=== PATIENT | female | born 1945 | race Caucasian/White ===

== ENCOUNTER → 2016-04-04 | Outpatient (CLI) | payer OTHER, MEDICARE ==
[~2016-04-04] MED LIST: BUTACAP7 PO; CHOL100010 PO; LEVO100T7 PO; METO1TAB66 PO; SERT1TAB92 PO; SIMV20TA5 PO
[2016-04-04 09:48] LABS: ESTIMATED AVERAGE GLUCOSE 108 mg/dl; HA1C FLAG Normal (Normal)
[2016-04-04 09:58] LABS: ALT/SGPT 51 U/L (12-78); AST/SGOT 39 U/L (15-37); BLOOD UREA NITROGEN 11 mg/dl (7-18); BUN/CREATININE RATIO 12.7 (10-20); CALCIUM 9.1 mg/dl (8.5-10.1); CARBON DIOXIDE 27 mmol/L (21-32); CHLORIDE 109 mmol/L (98-107); CREATININE 0.85 mg/dl (0.60-1.20); GLUCOSE 100 mg/dl (70-99); POTASSIUM 3.9 mmol/L (3.5-5.1); SODIUM 145 mmol/L (136-145)
--- NOTE | 2016-04-06 12:23 | CODING QUERY NO DIAGNOSIS ---
: 1945 TREATMENT RENDERED WITHOUT A DIAGNOSIS To promote full compliance with coding requirements relating to patient care, physician participation is requested in all cases of subsurface augmentee operator uncertainty. Please assist us with providing a diagnosis/symptom for the test(s) below: A diagnosis/symptom was not documented on your Order. A valid diagnosis/symptom is required to bill all insurances. Please remember that we are unable to code a diagnosis of rule out, probable, possible, questionable, or suspected. Tests that require a diagnosis: DOS: 04/04/16 * ALT/SGPT DIAGNOSIS: * AST/SGOT DIAGNOSIS: * Creatinine Phosphokinase DIAGNOSIS: * Partial Renal Profile DIAGNOSIS: * Hemoglobin A1C DIAGNOSIS: Provider Signature: Date: Thank you Jenna Kamara [facility] Information Management Once completed, please kindly fax back to [phone] For questions please call [phone]
== END | disposition home or self-care (01) ==
LOC: C.LAB 09:05
DX: E78.5 Hyperlipidemia, unspecified (principal); I10 Essential (primary) hypertension; R73.02 Impaired glucose tolerance (oral)

== ENCOUNTER → 2016-09-25 | Outpatient (CLI) | payer OTHER, MEDICARE ==
[2016-09-25 10:09] LABS: ALT/SGPT 50 U/L (12-78); AST/SGOT 42 U/L (15-37); BLOOD UREA NITROGEN 13 mg/dl (7-18); CALCIUM 9.2 mg/dl (8.5-10.1); CARBON DIOXIDE 29 mmol/L (21-32); CHLORIDE 110 mmol/L (98-107); CREATININE 0.75 mg/dl (0.60-1.20); GLUCOSE 95 mg/dl (70-99); POTASSIUM 3.8 mmol/L (3.5-5.1); SODIUM 143 mmol/L (136-145)
[2016-09-25 10:12] LABS: CHOLESTEROL 160 mg/dl (0-200); CHOLESTEROL/HDL RATIO 3.9; HDL CHOLESTEROL 41 mg/dl; LDL CHOLESTEROL CALCULATED 81 mg/dl; TRIGLYCERIDES 192 mg/dl (0-150); VERY LOW DENSITY LIPOPROT CALC 38 mg/dl
== END | disposition home or self-care (01) ==
LOC: C.LAB 08:19
DX: M81.0 Age-related osteoporosis without current pathological fracture (principal); I10 Essential (primary) hypertension; E78.5 Hyperlipidemia, unspecified

== ENCOUNTER → 2016-11-06 | Outpatient (CLI) | payer OTHER, MEDICARE | END | disposition home or self-care (01) | LOC: C.MAMM 13:26 | DX: M85.88 Other specified disorders of bone density and structure, other site (principal); M85.852 Other specified disorders of bone density and structure, left thigh; M85.851 Other specified disorders of bone density and structure, right thigh ==

== ENCOUNTER → 2016-11-13 | Outpatient (CLI) | payer OTHER, MEDICARE ==
[2016-11-13 11:55] LABS: FERRITIN 191.2 ng/ml (8.0-388.0); THYROID STIMULATING HORMONE 0.026 uIu/ml (0.300-4.500)
== END | disposition home or self-care (01) ==
LOC: C.LAB 09:31
DX: G47.00 Insomnia, unspecified (principal)

== ENCOUNTER → 2017-02-22 | Outpatient (CLI) | payer OTHER, MEDICARE ==
[~2017-02-22] MED LIST changes: +METO-452 PO; -METO1TAB66 PO
[2017-02-22 11:24] LABS: BASO % 0.8 %; BASO ABS # 0.06 K/uL (0-0.2); EOS % 2.3 %; EOS ABS # 0.17 K/uL (0-0.5); HEMATOCRIT 41.8 % (37-47); HEMOGLOBIN 14.8 g/dL (12.0-16.0); IG# 0.04 K/uL (0.00-0.02); LYMPH % 45.7 %; LYMPH ABS # 3.45 K/uL (1.2-3.4); MEAN CELL VOLUME 85.3 fL (80-100); MEAN CORPUSCULAR HEMOGLOBIN 30.2 pg (25-34); MEAN CORPUSCULAR HGB CONC 35.4 g/dl (32-36); MONO % 7.8 %; MONO ABS # 0.59 K/uL (0.11-0.59); NEUT % 42.9 %; NEUT ABS # 3.24 K/uL (1.4-6.5); PLATELET COUNT 216 K/uL (130-400); RED CELL DISTRIBUTION WIDTH CV 13.4 % (11.5-14.5); RED CELL DISTRIBUTION WIDTH SD 41.1 fL (36.4-46.3); WHITE BLOOD COUNT 7.55 K/uL (4.8-10.8)
[2017-02-22 13:13] LABS: ALBUMIN 3.9 gm/dl (3.4-5.0); ALT/SGPT 42 U/L (12-78); AST/SGOT 29 U/L (15-37); BLOOD UREA NITROGEN 15 mg/dl (7-18); CALCIUM 9.2 mg/dl (8.5-10.1); CARBON DIOXIDE 27 mmol/L (21-32); CREATININE 0.87 mg/dl (0.60-1.20); GLUCOSE 92 mg/dl (70-99); POTASSIUM 4.1 mmol/L (3.5-5.1); SODIUM 138 mmol/L (136-145)
[2017-02-22 13:23] LABS: ALKALINE PHOSPHATASE 132 U/L (45-117); TOTAL PROTEIN 8.2 gm/dl (6.4-8.2)
== END | disposition home or self-care (01) ==
LOC: C.LAB 09:46
DX: R50.9 Fever, unspecified (principal); R10.9 Unspecified abdominal pain

== ENCOUNTER 2019-07-05 09:07 | Observation (INO) ==
[2019-07-05] MEDS ORDERED: ONDANSETRON INJ 2 MG/ML 2 ML VIAL IV STA (09:31)
[2019-07-05] MEDS ORDERED: ACETAMINOPHEN 325 MG TAB PO STA (09:31)
[2019-07-05] MEDS ORDERED: SODIUM CHLORIDE 0.9% 1000ML 1,000 ML IV SCH (09:45)
--- NOTE | 2019-07-05 09:51 | Emergency Department Note ---
Impression & Plan Chest pain, Dehydration, Fever ED Provider Note NAME: TANG HER AGE: 73 SEX: F : 1945 ARRIVES VIA: Ambulance INFORMANT: Patient, ED PROVIDER(S): Kishan Sutton MD Chief Complaint: Chest pain HPI: Patient states she began to have chest pain last evening. She describes it as central with radiation to her back and left shoulder. Patient describes the pain as occasionally pleuritic although that is improved. Patient states it is worse with lying down. The patient states that her pain has improved [facility] and given 4 baby aspirin. No associated nausea or vomiting. Not currently pleuritic and not currently having chest pain the patient denies any prior lung or cardiac history. Patient is a non-smoker. No history of DVT or PE. Patient does admit to chronic left lower extremity swelling which has been ongoing for many years. No recent surgeries. No recent hospitalizations. Patient does not present with cough, fevers, chills, coronavirus contacts, coronavirus testing, or recent travel. Patient denies infectious symptoms including dysuria, rash, cough, sore throat. ROS: See HPI for pertinent positives and negatives. A total of 10 systems were reviewed and otherwise negative. Past medical history: See below Surgical history: See below Social history: See below Physical Exam: GENERAL: Mildly uncomfortable in appearance. Wearing a mask. EYE EXAM: Normal conjunctiva. PERRL, no anisocoria and EOM's grossly intact w/o pain. NECK: Supple, no nuchal rigidity, no adenopathy, non-tender. No signs of meningismus. LUNGS: Clear to auscultation. Normal chest wall mechanics. HEART: Tachycardic and regular, no MRG. ABDOMEN: Abdomen soft, non-tender, normo-active bowel sounds, no masses, no rebound or guarding. BACK: No CVA TTP. SKIN: No rashes and no bruising. UPPER EXTREMITIES: Upper extremities are grossly normal. LOWER EXTREMITIES: Grossly normal, trace left lower extremity edema with negative Homans sign bilaterally. NEURO EXAM: A&O x3, cranial nerves II-XII grossly intact, normal speech, moves all 4 extremities on command w/o issue. Differential diagnoses: Cardiac ischemia, aortic dissection, pulmonary embolism, pneumothorax, pneumonia, pericarditis, myocarditis, esophageal rupture, GERD, cholecystitis, pancreatitis, musculoskeletal, as well as other pathologies. Course: Patient was seen and evaluated the bedside. Full history physical exam was performed. EKG: Indication: Chest pain Sinus tachycardia, rate of 121, normal intervals, normal axis, Q waves in V2, patient does appear to have diffuse ST elevations that appear convex with associated SD depression which are apparent in V3 through V6 lead I, lead II, in lead aVF. May be more consistent with a pericarditis especially given the patient's borderline fever. Comparison EKG from February 01, 2015. Patient's rate today is higher, patient does not appear to have the ST elevations or SD depressions. Imaging Studies: Radiology results as stated below per my review in the radiologist's interpretation: XR chest 1V portable CLINICAL HISTORY: 73 years-old Female presenting with Chest Pain. TECHNIQUE: Portable upright AP view of the chest was obtained. COMPARISON: 02/01/2015. FINDINGS: Cardiomediastinal silhouette normal. Minimal left basilar opacities. No pleural effusion or pneumothorax. Degenerative changes of the thoracic spine. Upper abdomen normal. IMPRESSION: 1. Minimal left basilar opacities likely atelectasis or scarring. No convincing evidence of acute cardiopulmonary disease. ACT 112: Negative or not required by law. Electronically signed by: Florentin Peng M.D. 07/05/2019 9:50 AM Dictated: 07/05/19948 Transcribed: 07/05/1947 Cardiac monitoring: An order was placed for continuous cardiac monitoring. The monitor shows a rate of 121 with sinus tachycardia rhythm. MDM: Patient does present with concern for chest pain. The patient did receive aspirin prior to being sent over by [facility]. Initial EKG may show signs of pericarditis especially given the patient's borderline fever. Chest x-ray along with blood work was ordered at this time. The patient sitting upright currently does not express discomfort. The patient did state that she did have some pleuritic pain but does not experience that at the bedside currently. The patient states that she does have improvement in pain with sitting upright and is currently asymptomatic. Patient has a mild white count of 12 with a normal hemoglobin. Kidney function is not remarkable. Troponin negative. Given the concern for the patient's borderline fever as well as improvement with aspirin even in the setting of possible pericarditis patient does have some risk factors and possible concern for cardiac related chest pain. I did speak with the on-call hospitalist Dr. Darshan Walsh, DO [facility] physician group hospitalist service who agreed to further evaluate treat the patient. Patient was admitted to the medicine service. Of note the patient's heart rate was improving with IV fluids and antipyretics. I did consider the possibility of PE but the patient only had chronic left lower extremity edema with no change no calf pain the patient has been fairly active. I believe pericarditis to be more likely at this time or potentially atypical chest pain versus an infectious process given the patient's borderline temp. I did discuss this with the hospitalist. Past Med/Surg History Medical History Endometriosis Surgical History H/O dilation and curettage S/P tonsillectomy S/P tooth extraction Family History Uncle Colorectal cancer maternal Father Myocardial infarction, Onset Age: 52 Social History Preferred Language: Burmese Communication Ability: Effective Art Therapist Required: No Beliefs That Will Affect Care: None Current Living Situation: Alone Other Information That Helps Us Care for You: No Feels Safe at Home: Yes Safety Concerns: Feels Safe At This Time Smoking Status: Never smoker Do You Dip or Chew Tobacco: No ; Second Hand Exposure: No ; Tobacco Cessation Education Requested by Patient: No Hx Alcohol Use: Yes Alcohol type: hard liquor Alcohol Intake Frequency: Holidays/Special Occasions Hx Substance Use: No Allergies Allergies Allergy/AdvReac Type Severity Reaction Status Date / Time melatonin AdvReac Severe DYSTONIA Verified 07/05/19 16:36 Home Meds Home Medications Medication Instructions Recorded Confirmed amitriptyline 50 mg PO HS 07/05/19 07/05/19 atorvastatin [Lipitor] 20 mg PO QAM 07/05/19 07/05/19 [id number] 1 - 2 cap PO Q4H PRN 07/05/19 07/05/19 [Fiorinal] cholecalciferol (vitamin D3) 1,000 unit PO QAM 07/05/19 07/05/19 [Vitamin D3] levothyroxine [Synthroid] 125 mcg PO DAILYBB 07/05/19 07/05/19 metoprolol succinate [Toprol XL] 50 mg PO HS 07/05/19 07/05/19 Results & Data (ED) Vital Signs Vital Signs - 24 hr 07/05/19 09:14 07/05/19 09:15 07/05/19 09:30 Temperature 37.9 C H Temperature Source Oral Pulse Rate 124 H 119 H 115 H Pulse Rate from SpO2 Sensor 116 H Pulse Rhythm Regular Regular Respiratory Rate 18 16 14 Respiratory Effort / Characteristics Non-Labored Spontaneous Respiratory Depth Normal Respiratory Pattern Regular Blood Pressure 140/90 143/90 H Blood Pressure Mean 106 99 Pulse Oximetry 97 97 92 Oxygen Delivery Method Room Air Room Air Sepsis Recent Fever Within 48 Hours No Sepsis Action Taken by Nursing No Action Required 07/05/19 10:00 07/05/19 10:30 07/05/19 11:00 Temperature Temperature Source Pulse Rate 108 H 99 H 93 H Pulse Rate from SpO2 Sensor 109 H 101 H 94 H Pulse Rhythm Respiratory Rate 24 18 14 Respiratory Effort / Characteristics Respiratory Depth Respiratory Pattern Blood Pressure 143/81 H 127/92 127/74 Blood Pressure Mean 101 107 89 Pulse Oximetry 93 92 94 Oxygen Delivery Method Sepsis Recent Fever Within 48 Hours Sepsis Action Taken by Residential Medications Current Medication List: was personally reviewed by me Laboratory Data Attestation: I reviewed the patient's lab results. Result diagrams: 07/06/19 05:54 07/05/19 09:43 Lab Results 07/05/19 07/05/19 07/05/19 Range/Units 09:43 09:43 09:43 WBC 12.03 H (4.8-10.8) K/uL RBC 5.06 (4.2-5.4) M/uL Hgb 14.8 (12.0-16.0) g/dL Hct 42.4 (37-47) % MCV 83.8 (80-100) fL MCH 29.2 (25-34) pg MCHC 34.9 (32-36) g/dL RDW Std Deviation 38.3 (36.4-46.3) fL RDW Coeff of Anoop 12.8 (11.5-14.5) % Plt Count 204 (130-400) K/uL MPV 9.5 (7.4-10.4) fL Immature Gran % (Auto) 0.2 % Neut % (Auto) 66.5 % Lymph % (Auto) 22.7 % Boyle % (Auto) 10.1 % Eos % (Auto) 0.1 % Baso % (Auto) 0.4 % Immature Gran # (Auto) 0.03 H (0.00-0.02) K/uL Neut # (Auto) 7.99 H (1.4-6.5) K/uL Lymph # (Auto) 2.73 (1.2-3.4) K/uL Boyle # (Auto) 1.22 H (0.11-0.59) K/uL Eos # (Auto) 0.01 (0-0.5) K/uL Baso # (Auto) 0.05 (0-0.2) K/uL ESR (0-21) mm/hr PT 11.1 (9.0-12.0) Seconds INR 1.1 (0.9-1.1) APTT 25.3 (21.0-31.0) Seconds PTT Ratio 0.9 Sodium 138 (136-145) mmol/L Potassium 3.5 (3.5-5.1) mmol/L Chloride 108 H (98-107) mmol/L Carbon Dioxide 21 (21-32) mmol/L Anion Gap 9.0 (3-11) BUN 9 (7-18) mg/dl Creatinine 0.78 (0.6-1.2) mg/dl Est Cr Clr Drug Dosing 74.7 ml/min Est GFR ( Amer) 88.6 Est GFR (Non-Af Amer) 76.5 BUN/Creatinine Ratio 11.4 (10-20) Glucose 123 H (70-99) mg/dl Calcium 8.9 (8.5-10.1) mg/dl Phosphorus 3.0 (2.5-4.9) mg/dl Magnesium 1.9 (1.8-2.4) mg/dl Total Bilirubin 0.7 (0.2-1) mg/dl AST 34 (15-37) U/L ALT 48 (12-78) U/L Alkaline Phosphatase 128 H (45-117) U/L Troponin I < 0.015 (0-0.045) ng/ml Total Protein 7.8 (6.4-8.2) gm/dl Albumin 3.7 (3.4-5.0) gm/dl Globulin 4.1 H (2.5-4.0) gm/dl Albumin/Globulin Ratio 0.9 (0.9-2) Lipase 102 (73-393) U/L TSH (0.300-4.500) uIu/ml Free T4 (0.8-1.6) ng/dl 07/05/19 07/05/19 Range/Units 09:43 09:43 WBC (4.8-10.8) K/uL RBC (4.2-5.4) M/uL Hgb (12.0-16.0) g/dL Hct (37-47) % MCV (80-100) fL MCH (25-34) pg MCHC (32-36) g/dL RDW Std Deviation (36.4-46.3) fL RDW Coeff of Anoop (11.5-14.5) % Plt Count (130-400) K/uL MPV (7.4-10.4) fL Immature Gran % (Auto) % Neut % (Auto) % Lymph % (Auto) % Boyle % (Auto) % Eos % (Auto) % Baso % (Auto) % Immature Gran # (Auto) (0.00-0.02) K/uL Neut # (Auto) (1.4-6.5) K/uL Lymph # (Auto) (1.2-3.4) K/uL Boyle # (Auto) (0.11-0.59) K/uL Eos # (Auto) (0-0.5) K/uL Baso # (Auto) (0-0.2) K/uL ESR 21 (0-21) mm/hr PT (9.0-12.0) Seconds INR (0.9-1.1) APTT (21.0-31.0) Seconds PTT Ratio Sodium (136-145) mmol/L Potassium (3.5-5.1) mmol/L Chloride (98-107) mmol/L Carbon Dioxide (21-32) mmol/L Anion Gap (3-11) BUN (7-18) mg/dl Creatinine (0.6-1.2) mg/dl Est Cr Clr Drug Dosing ml/min Est GFR ( Amer) Est GFR (Non-Af Amer) BUN/Creatinine Ratio (10-20) Glucose (70-99) mg/dl Calcium (8.5-10.1) mg/dl Phosphorus (2.5-4.9) mg/dl Magnesium (1.8-2.4) mg/dl Total Bilirubin (0.2-1) mg/dl AST (15-37) U/L ALT (12-78) U/L Alkaline Phosphatase (45-117) U/L Troponin I (0-0.045) ng/ml Total Protein (6.4-8.2) gm/dl Albumin (3.4-5.0) gm/dl Globulin (2.5-4.0) gm/dl Albumin/Globulin Ratio (0.9-2) Lipase (73-393) U/L TSH 0.018 L (0.300-4.500) uIu/ml Free T4 1.51 (0.8-1.6) ng/dl Administered Medications Acetaminophen (Tylenol) 650 mg PO Q4H PRN PRN Reason: Pain or Fever Stop: 08/04/19 16:32 Last Admin: 07/06/19 06:05 Dose: 650 mg Documented by: [id number] Amitriptyline HCl (Elavil) 50 mg PO [facility] Stop: 08/04/19 20:59 Last Admin: 07/05/19 20:53 Dose: 50 mg Documented by: [id number] Colchicine (Colcrys) 0.6 mg PO BID [facility] Stop: 08/04/19 12:51 Last Admin: 07/05/19 20:53 Dose: 0.6 mg Documented by: [id number] Admin: 07/05/19 14:11 Dose: 0.6 mg Documented by: [id number] Ibuprofen (Motrin) 600 mg PO TID [facility] Stop: 08/04/19 13:59 Last Admin: 07/05/19 20:53 Dose: 600 mg Documented by: [id number] Admin: 07/05/19 14:11 Dose: 600 mg Documented by: [id number] Levothyroxine Sodium (Synthroid) 125 mcg PO DAILYBB [facility] Stop: 08/05/19 06:29 Last Admin: 07/06/19 06:03 Dose: 125 mcg Documented by: [id number] Metoprolol Succinate (Toprol Xl) 50 mg PO HS [facility] Stop: 08/04/19 20:59 Last Admin: 05/16/20 20:53 Dose: 50 mg Documented by: [id number] Discontinued Medications Acetaminophen (Tylenol) 650 mg PO NOW STA Stop: 07/05/19 09:32 Last Admin: 07/05/19 09:55 Dose: 650 mg Documented by: [id number] Sodium Chloride (Nss 1000ml) 1,000 mls @ 999 mls/hr IV .Q1H1M JANETH Stop: 07/05/19 10:45 Last Infusion: 07/05/19 11:00 Dose: 0 mls/hr Documented by: [id number] Admin: 07/05/19 09:55 Dose: 999 mls/hr Documented by: [id number] Ondansetron HCl (Zofran) 4 mg IV NOW STA Stop: 07/05/19 09:32 Last Admin: 07/05/19 09:55 Dose: 4 mg Documented by: [id number] Discharge Plan Visit Data *Final* Discharge Date/Time: 07/05/19 12:26 Chief Complaint: Chest Pain ED Provider: Kishan Sutton Discharge Problem: Chest pain, Dehydration, Fever Patient Disposition: Admitted As Inpatient Discharge Instructions Interventions: ED Discharge Assessment Last Done: 07/05/19 12:26 Discharge Problem: Chest pain Qualifiers: Chest pain type: unspecified Qualified Code(s): R07.9 - Chest pain, unspecified Fever Qualifiers: Fever type: unspecified Qualified Code(s): R50.9 - Fever, unspecified
--- NOTE | 2019-07-05 09:52 | XRay Report ---
XR chest 1V portable CLINICAL HISTORY: 73 years-old Female presenting with Chest Pain. TECHNIQUE: Portable upright AP view of the chest was obtained. COMPARISON: 02/01/2015. FINDINGS: Cardiomediastinal silhouette normal. Minimal left basilar opacities. No pleural effusion or pneumotho rax. Degenerative changes of the thoracic spine. Upper abdomen normal. IMPRESSION: 1. Minimal left basilar opacities likely atelectasis or scarring. No convincing evidence of acute ca rdiopulmonary disease. ACT 112: Negative or not required by law. Electronically signed by: Florentin Peng M.D. 07/05/2019 9:50 AM
[2019-07-05 09:55] LABS: Basophils # (auto) 0.05 K/uL (0-0.2); Basophils % (auto) 0.4 %; Eosinophils # (auto) 0.01 K/uL (0-0.5); Eosinophils % (auto) 0.1 %; Hematocrit (blood only) 42.4 % (37-47); Hemoglobin 14.8 g/dL (12.0-16.0); Immature Granulocytes # (auto) 0.03 K/uL (0.00-0.02); Immature Granulocytes % (auto) 0.2 %; Lymphocytes # (auto) 2.73 K/uL (1.2-3.4); Lymphocytes % (auto) 22.7 %; Mean Corpuscular Hemoglobin 29.2 pg (25-34); Mean Corpuscular Hgb Conc 34.9 g/dL (32-36); Mean Corpuscular Volume 83.8 fL (80-100); Mean Platelet Volume 9.5 fL (7.4-10.4); Monocytes # (auto) 1.22 K/uL (0.11-0.59); Monocytes % (auto) 10.1 %; Neutrophils # (auto) 7.99 K/uL (1.4-6.5); Neutrophils % (auto) 66.5 %; Platelet Count 204 K/uL (130-400); RDW Coefficient of Variation 12.8 % (11.5-14.5); RDW Standard Deviation 38.3 fL (36.4-46.3); Red Blood Count 5.06 M/uL (4.2-5.4); White Blood Count 12.03 K/uL (4.8-10.8)
[2019-07-05 10:06] LABS: INR 1.1 (0.9-1.1); Partial Thromboplastin Ratio 0.9; Partial Thromboplastin Time 25.3 Seconds (21.0-31.0); Prothrombin Time 11.1 Seconds (9.0-12.0)
[2019-07-05 10:11] LABS: Alanine Aminotransferase 48 U/L (12-78); Albumin Level 3.7 gm/dl (3.4-5.0); Aspartate Aminotransferase 34 U/L (15-37); BUN Creatinine Ratio 11.4 (10-20); Blood Urea Nitrogen 9 mg/dl (7-18); Calcium 8.9 mg/dl (8.5-10.1); Carbon Dioxide 21 mmol/L (21-32); Chloride 108 mmol/L (98-107); Creatinine Clr Calc Pharmacy 74.7 ml/min; Est GFR (African American) 88.6; Est GFR (Non-African American) 76.5; Glucose 123 mg/dl (70-99); Lipase 102 U/L (73-393); Magnesium 1.9 mg/dl (1.8-2.4); Potassium 3.5 mmol/L (3.5-5.1); Sodium 138 mmol/L (136-145)
[2019-07-05 10:16] LABS: Albumin Globulin Ratio 0.9 (0.9-2); Alkaline Phosphatase 128 U/L (45-117); Bilirubin,Total 0.7 mg/dl (0.2-1); Globulin 4.1 gm/dl (2.5-4.0); Total Protein 7.8 gm/dl (6.4-8.2); Troponin I < 0.015 ng/ml (0-0.045)
--- NOTE | 2019-07-05 10:56 | Electrocardiogram Report ---
Test Reason : Blood Pressure : / mmHG Vent. Rate : 121 BPM Atrial Rate : 121 BPM P-R Int : 154 ms QRS Dur : 082 ms QT Int : 328 ms P-R-T Axes : 072 040 048 degrees QTc Int : 465 ms Sinus tachycardia Possible Left atrial enlargement TX depression- consider pericarditis Abnormal ECG When compared with ECG of 01-FEB-2015 08:48, Vent. rate has increased BY 50 BPM Nonspecific T wave abnormality no longer evident in Inferior leads TX depression is new Confirmed by Gonzalez Hurt ([id number]) on 07/05/2019 10:55:56 AM Referred By: REFERRED SELF Confirmed By:Juan Pablo Hurt
--- NOTE | 2019-07-05 11:05 | History & Physical Report ---
Date of Service July 05, 2019 Assessment & Plan (1) Pericarditis: History and EKG changes associated with this. TTE Rx Colchicine 3 months, ibuprofen for 2 weeks as long as CRP negative CRP/ESR Lyme Ab in AM Repeat CBC, CRP in AM As long as afebrile overnight, no effusion on echocardiogram can likely be discharged home tomorrow (2) Hypertension: Continue metoprolol succinate 50mg PO HS (3) Hyperlipemia: Continue atorvastatin 20mg QAM (4) Insomnia: Continue amitriptyline 50mg HS (5) Hypothyroidism: TSH low but free T4 WNL - suspect due to current illness Continue levothyroxine 125mcg daily Repeat TSH in 6-8 weeks (6) Venous thromboembolism (VTE) prophylaxis not indicated: Short stay predicted overnight Ambulatory Admission and Anticipated Discharge Date Admission Date: 07/05/2019 Anticipated date of discharge: 07/06/19 History of Present Illness Chief Complaint: Chest pain Primary Care Provider: Kurt Mendes Jr, Mariam Scanlon is a 73 year old female who presented to the Emergency Room for chest pain. Initially she had a mild pain than started midday yesterday and reached it's maximum intensity around midnight last night. Improved since 324mg aspirin given at [facility]. No associated nausea, vomiting, diaphoresis or shortness of breath. Radiation to her left shoulder when it became most intense. Worse with lying down and relief when leaning forward. No prior LA but known HTN and hyperlipidemia. Non-smoker. No fever, chills, cough, loss of taste or smell. No known COVID-19 contact. Lives in [place] and out in the garden but no known tick bites or walking through [place]. Her dog brings in ticks occasionally. Allergies Allergy/AdvReac Type Severity Reaction Status Date / Time melatonin AdvReac Severe DYSTONIA Verified 07/05/19 16:36 Home Medications Home Medications Medication Instructions Recorded Confirmed Type amitriptyline 50 mg PO HS 07/05/19 07/05/19 History atorvastatin [Lipitor] 20 mg PO QAM 07/05/19 07/05/19 History [id number] 1 - 2 cap PO Q4H PRN 07/05/19 07/05/19 History [Fiorinal] cholecalciferol (vitamin D3) 1,000 unit PO QAM 07/05/19 07/05/19 History [Vitamin D3] levothyroxine [Synthroid] 125 mcg PO DAILYBB 07/05/19 07/05/19 History metoprolol succinate [Toprol XL] 50 mg PO HS 07/05/19 07/05/19 History Past Med/Surg History Medical History Endometriosis Surgical History H/O dilation and curettage S/P tonsillectomy S/P tooth extraction Family History Uncle Colorectal cancer maternal Father Myocardial infarction, Onset Age: 52 Social History Preferred Language: South [place] Communication Ability: Effective Safety Manager Required: No Beliefs That Will Affect Care: None Current Living Situation: Alone Other Information That Helps Us Care for You: No Feels Safe at Home: Yes Safety Concerns: Feels Safe At This Time Smoking Status: Never smoker Do You Dip or Chew Tobacco: No ; Second Hand Exposure: No ; Tobacco Cessation Education Requested by Patient: No Hx Alcohol Use: Yes Alcohol type: hard liquor Alcohol Intake Frequency: Holidays/Special Occasions Hx Substance Use: No Review of Systems Review of Systems: All systems reviewed & are unremarkable except as noted in HPI & below Physical Exam Constitutional: well developed and well nourished; no acute distress Eyes: + anicteric sclerae; normal pupil size ENMT: external ear and nose normal, oropharynx normal Neck: normal visual inspection and trachea midline Respiratory: normal respiratory effort and able to speak in complete sentences; no respiratory distress, no labored breathing and does not use accessory muscles Auscultation: lungs clear to auscultation bilaterally Cardiovascular: RRR, no murmur, no edema Gastrointestinal (Abdomen): normal bowel sounds, soft, nontender, no hepatosplenomegaly Musculoskeletal: no cyanosis or clubbing, extremities motor strength 5/5 Skin: no rashes, warm and dry Neurologic: moves all extremities and awake; not confused Psychiatric: A+Ox3, euthymic affect Lymphatic: no cervical or axillary lymphadenopathy Results & Data Results & Data ([facility]) Vital Signs (Past 12 Hours) Vital Signs Temp Pulse Resp BP Pulse Ox 07/05/19 10:30 99 H 18 127/92 92 07/05/19 10:00 108 H 24 143/81 H 93 07/05/19 09:30 115 H 14 143/90 H 92 07/05/19 09:15 119 H 16 97 07/05/19 09:14 37.9 C H 124 H 18 140/90 97 Diagnostic Findings XR chest 1V portable IMPRESSION: 1. Minimal left basilar opacities likely atelectasis or scarring. No convincing evidence of acute cardiopulmonary disease. ECG Indication: chest pain Rate (beats per minute): 121 Rhythm: sinus tachycardia Findings: + other ([place] depression and widespread ST elevation) Comparison ECG Date: from (02/01/2015) Change: the following changes noted (tachycardia and pericarditis changes as above) Code Status & VTE Plan Code Status Full VTE Prophylaxis Plan VTE Prophylaxis will be ordered: No Reason for no VTE drug order: Treatment not indicated Reason for no VTE mechanical prophylaxis: Treatment not indicated PG Care Time/CCT Total # of Minutes Spent Total Time Spent with Patient: Total time spent is greater than 50% in coordination of care (as documented) at patient's floor/unit and/or counseling patient: Coding Level of Care Code 09193 OBS Care - Level 2 Diagnoses Pericarditis I30.0 Pericarditis type: idiopathic Chronicity: acute Hypertension I10 Hypertension type: essential hypertension Hyperlipemia E78.5 Hyperlipidemia type: unspecified Insomnia G47.00 Insomnia type: unspecified Hypothyroidism E03.9 Hypothyroidism type: unspecified Venous thromboembolism (VTE) prophylaxis not indicated (1) Pericarditis Pericarditis type: idiopathic Chronicity: acute Qualified Code(s): I30.0 - Acute nonspecific idiopathic pericarditis (2) Hypertension Hypertension type: essential hypertension Qualified Code(s): I10 - Essential (primary) hypertension (3) Hyperlipemia Hyperlipidemia type: unspecified Qualified Code(s): E78.5 - Hyperlipidemia, unspecified (4) Insomnia Insomnia type: unspecified Qualified Code(s): G47.00 - Insomnia, unspecified (5) Hypothyroidism Hypothyroidism type: unspecified Qualified Code(s): E03.9 - Hypothyroidism, unspecified
[2019-07-05 11:33] LABS: Thyroid Stimulating Hormone 0.018 uIu/ml (0.300-4.500)
[2019-07-05 11:46] LABS: T4 Free Thyroxine 1.51 ng/dl (0.8-1.6)
--- NOTE | 2019-07-05 12:28 | XCELERA ---
[id number]
[2019-07-05] MEDS: IBUPROFEN 600 MG TAB PO SCH ×2 (14:11→20:53)
[2019-07-05] MEDS: COLCHICINE 0.6 MG TAB PO SCH ×2 (14:11→20:53)
[2019-07-05 16:33] LABS: Troponin I < 0.015 ng/ml (0-0.045)
[2019-07-05] MEDS ORDERED: ONDANSETRON INJ 2 MG/ML 2 ML VIAL IV PRN (16:33)
[2019-07-05] MEDS ORDERED: ACETAMINOPHEN 325 MG TAB PO PRN (16:33)
[2019-07-05 17:02] LABS: C Reactive Protein 7.79 mg/dl (0-0.29)
[2019-07-05] MEDS ORDERED: METOPROLOL SUCC 50MG EXT REL TAB PO SCH (21:00)
[2019-07-05] MEDS ORDERED: AMITRIPTYLINE HCL 50 MG TAB PO SCH (21:00)
[2019-07-06 06:29] LABS: Basophils # (auto) 0.04 K/uL (0-0.2); Basophils % (auto) 0.5 %; Eosinophils % (auto) 1.2 %; Hematocrit (blood only) 39.9 % (37-47); Hemoglobin 13.7 g/dL (12.0-16.0); Immature Granulocytes # (auto) 0.02 K/uL (0.00-0.02); Immature Granulocytes % (auto) 0.2 %; Lymphocytes # (auto) 3.43 K/uL (1.2-3.4); Lymphocytes % (auto) 42.8 %; Mean Corpuscular Hemoglobin 29.4 pg (25-34); Mean Corpuscular Hgb Conc 34.3 g/dL (32-36); Mean Corpuscular Volume 85.6 fL (80-100); Mean Platelet Volume 9.7 fL (7.4-10.4); Monocytes # (auto) 0.76 K/uL (0.11-0.59); Monocytes % (auto) 9.5 %; Neutrophils # (auto) 3.66 K/uL (1.4-6.5); Neutrophils % (auto) 45.8 %; Platelet Count 173 K/uL (130-400); RDW Coefficient of Variation 12.9 % (11.5-14.5); Red Blood Count 4.66 M/uL (4.2-5.4); White Blood Count 8.01 K/uL (4.8-10.8)
[2019-07-06] MEDS ORDERED: LEVOTHYROXINE SODIUM 125 MCG TABLET PO SCH (06:30)
[2019-07-06] MEDS: COLCHICINE 0.6 MG TAB PO SCH (07:53)
[2019-07-06] MEDS: IBUPROFEN 600 MG TAB PO SCH (07:53)
[2019-07-06] MEDS ORDERED: ATORVASTATIN 20 MG TAB PO SCH (09:00)
[2019-07-06] MEDS ORDERED: CHOLECALCIFEROL 1,000 UNITS 25 MCG TAB PO SCH (09:00)
[2019-07-06 10:59] LABS: Lyme Ab IgG w/WB Rflx Negative (Negative); Lyme Ab IgM w/WB Rflx Negative (Negative)
--- NOTE | 2019-07-06 11:19 | Electrocardiogram Report ---
Test Reason : Blood Pressure : / mmHG Vent. Rate : 067 BPM Atrial Rate : 067 BPM P-R Int : 164 ms QRS Dur : 082 ms QT Int : 412 ms P-R-T Axes : 042 036 030 degrees QTc Int : 435 ms Normal sinus rhythm Minor MO depression Abnormal ECG When compared with ECG of 05-JUL-2019 09:14, Vent. rate has decreased BY 54 BPM Confirmed by Gonzalez Hurt ([id number]) on 07/06/2019 11:19:46 AM Referred By: REFERRED SELF Confirmed By:Juan Pablo Hurt
--- NOTE | 2019-07-06 11:49 | Discharge Summary ---
Date of Service July 06, 2019 Admission HPI Per Admitting Provider Mariam Scanlon is a 73 year old female who presented to the Emergency Room for chest pain. Initially she had a mild pain than started midday yesterday and reached it's maximum intensity around midnight last night. Improved since 324mg aspirin given at [facility]. No associated nausea, vomiting, diaphoresis or shortness of breath. Radiation to her left shoulder when it became most intense. Worse with lying down and relief when leaning forward. No prior MN but known HTN and hyperlipidemia. Non-smoker. No fever, chills, cough, loss of taste or smell. No known COVID-19 contact. Lives in [place] and out in the garden but no known tick bites or walking through [place]. Her dog brings in ticks occasionally. Admission Exam Per Admitting Provider Constitutional: well developed and well nourished; no acute distress Eyes: + anicteric sclerae; normal pupil size ENMT: external ear and nose normal, oropharynx normal Neck: normal visual inspection and trachea midline Respiratory: normal respiratory effort and able to speak in complete sentences; no respiratory distress, no labored breathing and does not use accessory muscles Auscultation: lungs clear to auscultation bilaterally Cardiovascular: RRR, no murmur, no edema Gastrointestinal (Abdomen): normal bowel sounds, soft, nontender, no hepatosplenomegaly Musculoskeletal: no cyanosis or clubbing, extremities motor strength 5/5 Skin: no rashes, warm and dry Neurologic: moves all extremities and awake; not confused Psychiatric: Alert+Ox3, euthymic affect Lymphatic: no cervical or axillary lymphadenopathy Principal Diagnosis Pericarditis Discharge Exam Constitutional well developed and well nourished; no acute distress Eyes + anicteric sclerae; normal pupil size ENMT external ear and nose normal, oropharynx normal Neck normal visual inspection and trachea midline Respiratory normal respiratory effort and able to speak in complete sentences; no respiratory distress, no labored breathing and does not use accessory muscles Auscultation: lungs clear to auscultation bilaterally Cardiovascular RRR, no murmur, no edema Gastrointestinal (Abdomen) normal bowel sounds, soft, nontender, no hepatosplenomegaly Musculoskeletal no cyanosis or clubbing, extremities motor strength 5/5 Skin no rashes, warm and dry Neurologic moves all extremities and awake; not confused Psychiatric A+Ox3, euthymic affect Lymphatic no cervical or axillary lymphadenopathy Discharge Data Allergies Allergy/AdvReac Type Severity Reaction Status Date / Time melatonin AdvReac Severe DYSTONIA Verified 07/05/19 16:36 Consultations 07/05/19 11:04 ED Decision to Admit Stat Ordered Studies Echocardiogram: The left ventricle is hyperdynamic There is no pericardial effusion No significant valvular heart disease Compared to an echocardiogram from 2013, no significant change. Hospital Course (1) Pericarditis: Mariam Scanlon is a 73 year old female admitted to [facility] from July 04 to 2019 due to acute onset chest pain at rest. EKG, history was consistent with pericarditis which responded to ibuprofen and colchicine overnight although she still has mild chest pain on lying flat. CRP 9.67. No effusion or concern for constrictive pericarditis on echocardiogram. Lyme testing was negative. History of autoimmune conditions was negative. EKG in AM showed pericarditis findings mostly resolved (mild TN depression still present). Serial troponins negative. She should follow up with her PCP with repeat CRP in 2 weeks to determine if ibuprofen can be discontinued at that time. Colchicine to continue to 3 months unless she gets diarrhea in which case recommend reducing to once daily or stopping altogether if continues. TSH was low on this admission but free T4 level normal. Therefore given acute illness no changes to her thyoid medication was made and just recommend repeating in 6-8 weeks. (2) Hypertension: (3) Hyperlipemia: (4) Insomnia: (5) Hypothyroidism: Total Time Total Time Spent Total Time Spent (In Minutes): 35 Total Time Includes: Examination of the Patient, Discharge Planning and Medication Reconciliation Discharge Plan Discharge Items Patient Disposition: Home - Self-Care Reason For Visit: Chest Pain Discharge Diagnosis: Pericarditis Condition on Discharge: Good Activity: Resume your previous activity Non-emergency contact: Primary Care Provider Call non-emergency contact if: you have any medication questions and your symptoms worsen Follow-up/Referrals: Kurt Mendes Jr, DO [Primary Care Provider] - (Follow up in 1-2 weeks after discharge) Diet: Regular Addtl Attending Provider Instructions: You were admitted to [facility] from July 04 to 2019 due to chest pain. EKG, history was consistent with pericarditis which responded to ibuprofen and colchicine. CRP 9.67. No effusion on echocardiogram. Please follow up with your primary care physician with repeat CRP in approximately 2 weeks to determine whether you can stop ibuprofen. Recommend continuing colchicine for 3 months. Of note your TSH was low on this admission but free T4 level normal. This is likely in response to your acute illness and no adjustments to your medication is recommend. Recommend TSH is repeated in 6-8 weeks. Kind regards, Dr Darshan Walsh Pending Studies at Discharge: No Stand-Alone Forms: My [facility] Medications and DC Order Prescriptions: New ibuprofen 600 mg tablet 600 mg PO Q8H 14 Days Qty: 42 RF: 0 colchicine 0.6 mg tablet 0.6 mg PO BID Qty: 60 RF: 0 Continued atorvastatin [Lipitor] 20 mg tablet 20 mg PO QAM RF: 0 metoprolol succinate [Toprol XL] 50 mg tablet extended release 24 hr 50 mg PO HS RF: 0 amitriptyline 25 mg tablet 50 mg PO HS RF: 0 levothyroxine [Synthroid] 125 mcg tablet 125 mcg PO DAILYBB RF: 0 bnfhrabhmj-mbroxsf-tmcldgpz [Fiorinal] 50-325-40 mg capsule 1 - 2 cap PO Q4H PRN (Reason: Headache) RF: 0 cholecalciferol (vitamin D3) [Vitamin D3] 25 mcg (1,000 unit) Capsule 1,000 unit PO QAM RF: 0 Discharge Orders: Discharge Order (Routine); Ordered 07/06/19 Ordered By: Darshan Linder/Other Patient Handouts: Pericarditis Admission Data Admit Date/Time: 07/05/19 11:04 Attending Provider: Darshan Walsh Admit Provider: Darshan Walsh Primary Care Provider: Kurt Mendes Jr Other Providers: aDrshan Walsh Other Interventions: Discharge Summary Assessment (RN) Last Done: 07/06/19 11:53 DC Date/Time DO NOT enter until pt leaves facility: 07/06/19 12:30 Coding Level of Care Code 96622 OBS Care - Discharge Diagnoses Pericarditis I30.0 Chronicity: acute Pericarditis type: idiopathic Hypertension I10 Hypertension type: essential hypertension Hyperlipemia E78.5 Hyperlipidemia type: unspecified Insomnia G47.00 Insomnia type: unspecified Hypothyroidism E03.9 Hypothyroidism type: unspecified
== END 2019-07-06 12:30 | disposition home or self-care (01) ==
LOC: ED 09:07 → 2S 09:07

== ENCOUNTER 2021-08-29 11:31 | Inpatient (IN) ==
[2021-08-29] MEDS: NITROGLYCERIN SL 0.4 MG/TAB TAB SL PRN ×2 (12:12→12:38)
[2021-08-29] MEDS ORDERED: MoRPHine SULFATE 4 MG/ML 1 ML CARP\\VIAL IV STA (12:28)
--- NOTE | 2021-08-29 12:32 | Emergency Department Note ---
History of Present Illness General Chief Complaint: Chest Pain Stated Complaint: CHEST PAIN,HTN Time Seen by Provider: 08/29/21 11:44 History of Present Illness Provider Complaint: chest pain Onset (ago): day(s) 2 Duration: constant Onset: during rest Pain Location: substernal and epigastric Pain Radiation: back Severity: severe Maximum Pain Intensity: 9 Current Pain Intensity: 9 Quality: + sharp Relieved By: + nothing Exacerbated By: + nothing Context: + history of DVT/PE; no recent illness, no recent surgery, no recent travel, no trauma/injury or no new medications Associated symptoms: no nausea, no vomiting, no diaphoresis, no dyspnea, no syncope, no palpitations, no fever or no cough Treatments prior to arrival: none Patient reports the discomfort is similar to when she was diagnosed with pericarditis. Home Medications Medication Instructions Recorded Confirmed Type amitriptyline 25 mg tablet 50 mg PO HS 07/05/19 07/05/19 History atorvastatin 20 mg tablet (Lipitor) 20 mg PO QAM 07/05/19 07/05/19 History mgblwpqysb-yyydkue-pjiegrnm 50 1 - 2 cap PO Q4H PRN 07/05/19 07/05/19 History mg-325 mg-40 mg capsule (Fiorinal) cholecalciferol (vitamin D3) 25 1,000 unit PO QAM 07/05/19 07/05/19 History mcg (1,000 unit) capsule (Vitamin D3) levothyroxine 125 mcg tablet 125 mcg PO DAILYBB 07/05/19 07/05/19 History (Synthroid) metoprolol succinate 50 mg 50 mg PO HS 07/05/19 07/05/19 History tablet,extended release 24 hr (Toprol XL) colchicine 0.6 mg tablet 0.6 mg PO BID #60 tab 07/06/19 Rx Allergies Allergy/AdvReac Type Severity Reaction Status Date / Time melatonin AdvReac Severe DYSTONIA Verified 07/05/19 16:36 Past Med/Surg History Medical History Endometriosis Hyperlipemia Hypertension Pericarditis Surgical History H/O dilation and curettage S/P tonsillectomy S/P tooth extraction Family History Uncle Colorectal cancer maternal Father Myocardial infarction, Onset Age: 52 Social History Smoking Status: Never smoker Second Hand Exposure: No; Hx Alcohol Use: Yes Alcohol type: hard liquor Hx Substance Use: No Preferred Language: Chadian Communication Ability: Effective Prosthodontist Required: No Beliefs That Will Affect Care: None Current Living Situation: Alone Feels Safe at Home: Yes Assistive Devices: None Review of Systems A total of 10 systems reviewed and were otherwise negative Physical Exam Vital Signs Vital Signs - 24 hr 08/29/21 11:35 08/29/21 11:50 08/29/21 12:00 Temperature 37.0 C Temperature Source Oral Pulse Rate 104 H 94 H 86 Pulse Rate from SpO2 Sensor 93 H 87 Pulse Rhythm Regular Pulse Strength Normal Respiratory Rate 18 24 20 Respiratory Effort / Characteristics Non-Labored Spontaneous Respiratory Depth Normal Respiratory Pattern Regular Blood Pressure 200/105 H Blood Pressure Mean 136 Blood Pressure Position Sitting Pulse Oximetry 99 100 99 Oxygen Delivery Method Room Air Sepsis Recent Fever Within 48 Hours No Sepsis New/Unexplained Change in Mental Status N/A Sepsis Action Taken by Nursing No Action Required 08/29/21 12:05 08/29/21 12:10 08/29/21 12:20 Temperature Temperature Source Pulse Rate 87 97 H Pulse Rate from SpO2 Sensor 87 96 H Pulse Rhythm Pulse Strength Respiratory Rate 19 15 Respiratory Effort / Characteristics Respiratory Depth Respiratory Pattern Blood Pressure Blood Pressure Mean Blood Pressure Position Pulse Oximetry 99 100 98 Oxygen Delivery Method Room Air Sepsis Recent Fever Within 48 Hours Sepsis New/Unexplained Change in Mental Status Sepsis Action Taken by Nursing 08/29/21 12:25 08/29/21 12:30 08/29/21 13:04 Temperature Temperature Source Pulse Rate 94 H 98 H 84 Pulse Rate from SpO2 Sensor 95 H 97 H Pulse Rhythm Pulse Strength Respiratory Rate 15 19 17 Respiratory Effort / Characteristics Respiratory Depth Respiratory Pattern Blood Pressure 160/97 H 173/76 H Blood Pressure Mean 118 108 Blood Pressure Position Pulse Oximetry 93 97 Oxygen Delivery Method Sepsis Recent Fever Within 48 Hours Sepsis New/Unexplained Change in Mental Status Sepsis Action Taken by Nursing Physical Exam HENT: Exam performed. -Head: Normocephalic and atraumatic. -Right Ear: External ear normal. No mastoid tenderness. -Left Ear: External ear normal. No mastoid tenderness. -Mouth/Throat: The oropharynx is clear and moist. No trismus in the jaw. No dental abscesses or uvula swelling. No oropharyngeal exudate or tonsillar abscesses. EYES: Conjunctivae and EOM are normal. Pupils are equal, round, and reactive to light. Right eye exhibits no discharge. Left eye exhibits no discharge. No scleral icterus. NECK: Normal range of motion. Neck supple. No JVD present. No spinous process tenderness present. No carotid bruit present. No rigidity. No tracheal deviation and normal range of motion present. No Brudzinski's sign and no Kernig's sign noted. CV: Normal rate, regular rhythm, normal heart sounds and intact distal pulses. There is no peripheral edema. Palpable radial pulses bue. PULM/CHEST: Effort normal and breath sounds normal. No respiratory distress. No stridor. She has no wheezes. She has no rales. -Chest Wall: She exhibits no tenderness. ABD: The abdomen is soft. Bowel sounds are normal. She has no distension. No mass is present. There is no tenderness. There is no rebound, no guarding, no Lam's sign and no tenderness at McBurney's point. Rovsig negative MUSC/SKEL: Normal range of motion. There is no peripheral edema, tenderness or deformity. LYMPH: No cervical adenopathy. NEURO: She is alert and oriented to person, place, and time. She has normal strength. No cranial nerve deficit or sensory deficit. Coordination and gait normal. GCS eye subscore is 4. GCS verbal subscore is 5. GCS motor subscore is 6. Cerebellar tests wnl. SKIN: Skin is warm and dry. She is not diaphoretic. PSYCH: She has a normal mood and affect. Behavior is normal. Judgment and thought content normal. Course Course 1144: The patient was evaluated in room B12. A complete history and physical exam was performed Cardiac monitoring: An order was placed for continuous cardiac monitoring. The monitor shows a rate of 100 with sinus rhythm 1233: Patient still reporting pain out of 9/10 status post 2 sublingual nitro. Will obtain posterior EKG. Blood pressure improved. If posterior EKG within normal limits showing no STEMI we will send the patient for CTA rule out dissection. 1323: Vital signs stable. Patient reports her pain is better status post morphine. CTA of the chest and abdomen is negative for dissection but does show acute cholecystitis. Discussed the case with Maricruz ELLIOTT for general surgery who states she will be down to evaluate the patient. 1354: Maricruz Delgado states to admit the patient to general surgery Dr. Recio. Administered Medications Ciprofloxacin (Cipro / D5w) 400 mg in 200 mls @ 200 mls/hr IV NOW STA Stop: 08/29/21 14:19 Last Admin: 08/29/21 13:38 Dose: 200 mls/hr Documented by: [id number] Nitroglycerin (Nitroglycerin Sl 0.4 Mg/Tab Tab) 0.4 mg SL UD PRN PRN Reason: Chest Pain Stop: 09/28/21 11:51 Last Admin: 08/29/21 12:38 Dose: 0.4 mg Documented by: [id number] Admin: 08/29/21 12:12 Dose: 0.4 mg Documented by: [id number] Discontinued Medications Ioversol (Optiray 320 125ml) 120 ml IV ONCE ONE Stop: 08/29/21 13:01 Last Admin: 08/29/21 13:00 Dose: 120 ml Documented by: [id number] Morphine Sulfate (Morphine Sulfate 4 Mg/Ml 1 Ml Carp\Vial) 4 mg IV NOW STA Stop: 08/29/21 12:29 Last Admin: 08/29/21 12:40 Dose: 4 mg Documented by: [id number] Medical Decision Making Laboratory Data Result diagrams: 08/29/21 12:20 08/29/21 12:20 Labs: Lab Results 08/29/21 08/29/21 08/29/21 Range/Units 12:20 12:20 12:20 WBC 11.04 H (4.8-10.8) K/ul RBC 4.76 (3.93-5.22) M/uL Hgb 14.0 (12.0-16.0) g/dl POC Hgb (12.0-16.0) g/dl Hct 38.3 (34.1-44.9) % POC Hct (37-47) % MCV 80.5 (80.0-100.0) fL MCH 29.4 (25.0-34.0) pg MCHC 36.6 H (32.0-36.0) g/dL RDW Std Deviation 35.8 L (36.4-46.3) fL RDW Coeff of Anoop 12.4 (11.5-14.5) % Plt Count 233 (130-400) K/uL MPV 9.4 (9.4-12.3) fL Immature Gran % (Auto) 0.4 % Neut % (Auto) 64.6 % Lymph % (Auto) 27.9 % [place] % (Auto) 6.3 % Eos % (Auto) 0.3 % Baso % (Auto) 0.5 % Neut # (Auto) 7.14 H (1.4-6.5) K/uL Lymph # (Auto) 3.08 (1.2-3.4) K/uL [place] # (Auto) 0.70 (0.24-0.82) K/uL Eos # (Auto) 0.03 (0-0.50) K/uL Baso # (Auto) 0.05 (0-0.2) K/uL Immature Gran # (Auto) 0.04 H (0.00-0.02) K/uL PT 10.9 (9.0-12.0) Seconds INR 1.0 (0.9-1.1) APTT 23.5 (21.0-31.0) Seconds PTT Ratio 0.9 D-Dimer 1150 H* (0-500) ug/L FEU POC Sodium (135-144) mmol/L Sodium 137 (136-145) mmol/L POC Potassium (3.3-5.0) mmol/L Potassium 3.6 (3.5-5.1) mmol/L POC Chloride (101-112) mmol/L Chloride 101 (98-107) mmol/L Carbon Dioxide 20 L (21-32) mmol/L POC Total CO2 (24-31) mmol/L Anion Gap 16 H (3-11) POC Anion Gap (16-25) mmol/L POC BUN (7-18) mg/dl BUN 10 (6-23) mg/dl Creatinine 0.61 (0.6-1.2) mg/dl POC Creatinine (0.6-1.3) mg/dl Est Cr Clr Drug Dosing 73.9 ml/min Est GFR ( Amer) 104.2 ml/min Est GFR (Non-Af Amer) 89.9 ml/min BUN/Creatinine Ratio 16.4 (10-20) Glucose 98 (70-99(Fasting)) mg/dl POC Glucose (other) (70-99) mg/dl Calcium 10.2 H (8.5-10.1) mg/dl POC Ioniz Calcium Opal (1.12-1.32) mmol/l Total Bilirubin 0.8 (0.2-1.0) mg/dl Direct Bilirubin 0.1 (0-0.2) mg/dl AST 21 (13-39) U/L ALT 16 (7-52) U/L Alkaline Phosphatase 59 (34-104) U/L Troponin I High Sens 4.3 (0-14) pg/ml Total Protein 7.7 (6.0-8.3) gm/dl Albumin 4.7 (3.4-5.0) gm/dl Lipase 40 (11-82) U/L 08/29/21 Range/Units 12:27 WBC (4.8-10.8) K/ul RBC (3.93-5.22) M/uL Hgb (12.0-16.0) g/dl POC Hgb 13.6 (12.0-16.0) g/dl Hct (34.1-44.9) % POC Hct 40 (37-47) % MCV (80.0-100.0) fL MCH (25.0-34.0) pg MCHC (32.0-36.0) g/dL RDW Std Deviation (36.4-46.3) fL RDW Coeff of Anoop (11.5-14.5) % Plt Count (130-400) K/uL MPV (9.4-12.3) fL Immature Gran % (Auto) % Neut % (Auto) % Lymph % (Auto) % [place] % (Auto) % Eos % (Auto) % Baso % (Auto) % Neut # (Auto) (1.4-6.5) K/uL Lymph # (Auto) (1.2-3.4) K/uL [place] # (Auto) (0.24-0.82) K/uL Eos # (Auto) (0-0.50) K/uL Baso # (Auto) (0-0.2) K/uL Immature Gran # (Auto) (0.00-0.02) K/uL PT (9.0-12.0) Seconds INR (0.9-1.1) APTT (21.0-31.0) Seconds PTT Ratio D-Dimer (0-500) ug/L FEU POC Sodium 138 (135-144) mmol/L Sodium (136-145) mmol/L POC Potassium 3.5 (3.3-5.0) mmol/L Potassium (3.5-5.1) mmol/L POC Chloride 101 (101-112) mmol/L Chloride (98-107) mmol/L Carbon Dioxide (21-32) mmol/L POC Total CO2 20 L (24-31) mmol/L Anion Gap (3-11) POC Anion Gap 22.0 (16-25) mmol/L POC BUN 8 (7-18) mg/dl BUN (6-23) mg/dl Creatinine (0.6-1.2) mg/dl POC Creatinine 0.5 L (0.6-1.3) mg/dl Est Cr Clr Drug Dosing ml/min Est GFR ( Amer) ml/min Est GFR (Non-Af Amer) ml/min BUN/Creatinine Ratio (10-20) Glucose (70-99(Fasting)) mg/dl POC Glucose (other) 101 H (70-99) mg/dl Calcium (8.5-10.1) mg/dl POC Ioniz Calcium Opal 1.14 (1.12-1.32) mmol/l Total Bilirubin (0.2-1.0) mg/dl Direct Bilirubin (0-0.2) mg/dl AST (13-39) U/L ALT (7-52) U/L Alkaline Phosphatase (34-104) U/L Troponin I High Sens (0-14) pg/ml Total Protein (6.0-8.3) gm/dl Albumin (3.4-5.0) gm/dl Lipase (11-82) U/L Imaging Data CT scan - abdomen: Radiologist's impression: CT angio abdomen pelvis w con CLINICAL HISTORY: ro dissection TECHNIQUE: Multidetector row helical CT of the abdomen and pelvis was performed, following intravenous administration of iodinated contrast. No oral contrast was administered. Automated dose lowering techniques and/or adjustment according to patient size were utilized for this exam. Coronal and sagittal reformations were obtained. MIP and 3D volume rendered reconstructions were obtained. Comparison: None available at the time of this dictation. FINDINGS: Lower chest: For findings above the diaphragm, please see CT chest performed same day. Liver: Unremarkable. No focal lesions are seen. Gallbladder and biliary tree: Cholelithiasis is seen. The gallbladder wall is thickened to 4 mm and small pericholecystic fluid is seen. No intra- or extrahepatic biliary ductal dilation. Pancreas: Unremarkable, no focal lesions. Spleen: Splenule is incidentally noted. Adrenals: Unremarkable. Kidneys and ureters: Unremarkable. Bladder: Unremarkable. Reproductive organs: Unremarkable. Bowel: Diverticulosis is seen without evidence of diverticulitis. The appendix is not well seen. Lymph nodes Retroperitoneal: Unremarkable. Mesenteric: Unremarkable. Pelvic: Unremarkable. Peritoneum: Normal. Abdominal wall: Unremarkable. Bones: Degenerative changes in the visualized spine. CT angiogram: The abdominal aortic contours appear intact without evidence of aneurysmal dilatation and/or dissection. No significant atherosclerosis is seen. The origins of the celiac axis, superior mesenteric, inferior mesenteric and bilateral renal arteries are patent. IMPRESSION: 1. Gallstones and gallbladder wall thickening compatible with acute cholecystitis. 2. Atherosclerotic disease is seen without evidence of critical stenosis. ACT 112: Negative or not required by law. Electronically signed by: Austin Esposito M.D. 08/29/2021 1:16 PM Dictated:08/29/211309 Transcribed: 08/29/211309 CT scan - chest: Radiologist's impression: CT angio chest dissec wo/w con CLINICAL HISTORY: ro dissection TECHNIQUE: Multidetector row helical CT of the chest was performed before and after injection of IV contrast. Coronal and sagittal reformations were obtained. Automated dose lowering techniques and/or adjustment according to patient size were utilized for this exam. CT DOSE: 653.01 mGy.cm Comparison: None available at the time of this dictation. FINDINGS: Lungs and pleura: Normal. Heart and pericardium: Heart size is normal. No pericardial effusion. Vessels: Moderate atherosclerotic changes in the aorta and coronary arteries. Mediastinum and zuleika: Unremarkable. Chest wall and lower neck: Unremarkable. Abdomen: For findings below the diaphragm, please refer to CT of the abdomen dated the same. Bones: Degenerative changes in the thoracic spine. IMPRESSION: No acute abnormality and in particular no evidence of acute aortic injury. ACT 112: Negative or not required by law. Electronically signed by: Austin Esposito M.D. 08/29/2021 1:10 PM Dictated:08/29/21 1304 Transcribed: 08/29/21 1304 Chest x-ray: Radiologist's impression: XR chest 1V portable CLINICAL HISTORY: Chest Pain TECHNIQUE: Single frontal radiograph of the chest was obtained. Comparison: None available at the time of this dictation. FINDINGS: No lines and tubes are seen. The cardiomediastinal silhouette is normal. The lungs are clear. No evidence of pleural effusion or pneumothorax. IMPRESSION: No acute chest disease. ACT 112: Negative or not required by law. Electronically signed by: Austin Esposito M.D. 08/29/2021 1:17 PM Dictated:08/29/21 1316 Transcribed: 08/29/21 1316 ECG Data Additional Comments: EKG 1 at 1145: Sinus rhythm with a rate of 92. NV 152 QRS [address] elevation. There is mild ST depression in II, III, aVF V3 V4 V5 V6. These changes are new when compared to the EKG from June 2019. EKG #2 at 1204: Sinus rhythm with rate of 86. NV 150 QRS [address] casey vation. Mild ST depression in leads II, III, aVF V3 V4 V5 V6. EKG #3 at 1237 posterior EKG: Sinus rhythm with a rate of 83. NV 144 QRS [address] elevation or ST depression. [facility] Narrative 1144: The patient was evaluated in room B12. A complete history and physical exam was performed Cardiac monitoring: An order was placed for continuous cardiac monitoring. The monitor shows a rate of 100 with sinus rhythm 1233: Patient still reporting pain out of 9/10 status post 2 sublingual nitro. Will obtain posterior EKG. Blood pressure improved. If posterior EKG within normal limits showing no STEMI we will send the patient for CTA rule out dissection. 1323: Vital signs stable. Patient reports her pain is better status post morphine. CTA of the chest and abdomen is negative for dissection but does show acute cholecystitis. Discussed the case with Maricruz ELLIOTT for general surgery who states she will be down to evaluate the patient. 1354: Maricruz Delgado states to admit the patient to general surgery Dr. Recio. Impression & Plan Acute cholecystitis Discharge Plan Visit Data Chief Complaint: Chest Pain Stated Complaint: CHEST PAIN,HTN ED Provider: Stephania,Jagdeep Discharge Problem: Acute cholecystitis Patient Disposition: Being Evaluated by Surgeon Forms Stand Alone Forms: My [facility] [employer] Prescriptions Prescriptions: No Action atorvastatin [Lipitor] 20 mg tablet 20 mg PO QAM RF: 0 metoprolol succinate [Toprol XL] 50 mg tablet extended release 24 hr 50 mg PO HS RF: 0 amitriptyline 25 mg tablet 50 mg PO HS RF: 0 levothyroxine [Synthroid] 125 mcg tablet 125 mcg PO DAILYBB RF: 0 [id number]-zzgtgld-ubokmsri [Fiorinal] 50-325-40 mg capsule 1 - 2 cap PO Q4H PRN (Reason: Headache) RF: 0 cholecalciferol (vitamin D3) [Vitamin D3] 25 mcg (1,000 unit) Capsule 1,000 unit PO QAM RF: 0 colchicine 0.6 mg tablet 0.6 mg PO BID Qty: 60 RF: 0 Referrals Referrals: Kurt Mendes Jr, [Primary Care Provider] -
[2021-08-29 12:40] LABS: iSTAT Creatinine 0.5 mg/dl (0.6-1.3); iSTAT Hemoglobin 13.6 g/dl (12.0-16.0); iSTAT Ionized Calcium 1.14 mmol/l (1.12-1.32); iSTAT Potassium 3.5 mmol/L (3.3-5.0)
[2021-08-29 12:40] LABS: Basophils # (auto) 0.05 K/uL (0-0.2); Basophils % (auto) 0.5 %; Eosinophils # (auto) 0.03 K/uL (0-0.50); Eosinophils % (auto) 0.3 %; Hematocrit (blood only) 38.3 % (34.1-44.9); Immature Granulocytes # (auto) 0.04 K/uL (0.00-0.02); Immature Granulocytes % (auto) 0.4 %; Lymphocytes # (auto) 3.08 K/uL (1.2-3.4); Lymphocytes % (auto) 27.9 %; Mean Corpuscular Hemoglobin 29.4 pg (25.0-34.0); Mean Corpuscular Hgb Conc 36.6 g/dL (32.0-36.0); Mean Corpuscular Volume 80.5 fL (80.0-100.0); Mean Platelet Volume 9.4 fL (9.4-12.3); Monocytes % (auto) 6.3 %; Neutrophils # (auto) 7.14 K/uL (1.4-6.5); Neutrophils % (auto) 64.6 %; Platelet Count 233 K/uL (130-400); RDW Coefficient of Variation 12.4 % (11.5-14.5); RDW Standard Deviation 35.8 fL (36.4-46.3); Red Blood Count 4.76 M/uL (3.93-5.22); White Blood Count 11.04 K/ul (4.8-10.8)
[2021-08-29 12:53] LABS: Partial Thromboplastin Ratio 0.9; Partial Thromboplastin Time 23.5 Seconds (21.0-31.0); Prothrombin Time 10.9 Seconds (9.0-12.0)
[2021-08-29 12:54] LABS: D Dimer 1150 ug/L FEU (0-500)
[2021-08-29] MEDS ORDERED: OPTIRAY 320 125ml IV ONE (13:00)
[2021-08-29 13:02] LABS: Albumin Level 4.7 gm/dl (3.4-5.0); BUN Creatinine Ratio 16.4 (10-20); Bilirubin Direct 0.1 mg/dl (0-0.2); Bilirubin,Total 0.8 mg/dl (0.2-1.0); Calcium 10.2 mg/dl (8.5-10.1); Creatinine Clr Calc Pharmacy 73.9 ml/min; Est GFR (African American) 104.2 ml/min; Est GFR (Non-African American) 89.9 ml/min; Potassium 3.6 mmol/L (3.5-5.1); Total Protein 7.7 gm/dl (6.0-8.3)
[2021-08-29 13:05] LABS: Troponin I High Sensitivity 4.3 pg/ml (0-14)
--- NOTE | 2021-08-29 13:11 | CT Scan Report ---
CT angio chest dissec wo/w con CLINICAL HISTORY: ro dissection TECHNIQUE: Multidetector row helical CT of the chest was performed before and after injection of IV c ontrast. Coronal and sagittal reformations were obtained. Automated dose lowering techniques and/or a djustment according to patient size were utilized for this exam. CT DOSE: 653.01 mGy.cm Comparison: None available at the time of this dictation. FINDINGS: Lungs and pleura: Normal. Heart and pericardium: Heart size is normal. No pericardial effusion. Vessels: Moderate atherosclerotic changes in the aorta and coronary arteries. Mediastinum and zuleika: Unremarkable. Chest wall and lower neck: Unremarkable. Abdomen: For findings below the diaphragm, please refer to CT of the abdomen dated the same. Bones: Degenerative changes in the thoracic spine. IMPRESSION: No acute abnormality and in particular no evidence of acute aortic injury. ACT 112: Negative or not required by law. Electronically signed by: Austin Esposito M.D. 08/29/2021 1:10 PM
--- NOTE | 2021-08-29 13:17 | CT Scan Report ---
CT angio abdomen pelvis w con CLINICAL HISTORY: ro dissection TECHNIQUE: Multidetector row helical CT of the abdomen and pelvis was performed, following intravenou s administration of iodinated contrast. No oral contrast was administered. Automated dose lowering te chniques and/or adjustment according to patient size were utilized for this exam. Coronal and sagitta l reformations were obtained. MIP and 3D volume rendered reconstructions were obtained. Comparison: None available at the time of this dictation. FINDINGS: Lower chest: For findings above the diaphragm, please see CT chest performed same day. Liver: Unremarkable. No focal lesions are seen. Gallbladder and biliary tree: Cholelithiasis is seen. The gallbladder wall is thickened to 4 mm and s mall pericholecystic fluid is seen. No intra- or extrahepatic biliary ductal dilation. Pancreas: Unremarkable, no focal lesions. Spleen: Splenule is incidentally noted. Adrenals: Unremarkable. Kidneys and ureters: Unremarkable. Bladder: Unremarkable. Reproductive organs: Unremarkable. Bowel: Diverticulosis is seen without evidence of diverticulitis. The appendix is not well seen. Lymph nodes Retroperitoneal: Unremarkable. Mesenteric: Unremarkable. Pelvic: Unremarkable. Peritoneum: Normal. Abdominal wall: Unremarkable. Bones: Degenerative changes in the visualized spine. CT angiogram: The abdominal aortic contours appear intact without evidence of aneurysmal dilatation a nd/or dissection. No significant atherosclerosis is seen. The origins of the celiac axis, superior mesenteric, inferior mesenteric and bilateral renal arteries are patent. IMPRESSION: 1. Gallstones and gallbladder wall thickening compatible with acute cholecystitis. 2. Atherosclerotic disease is seen without evidence of critical stenosis. ACT 112: Negative or not required by law. Electronically signed by: Austin Esposito M.D. 08/29/2021 1:16 PM
--- NOTE | 2021-08-29 13:19 | XRay Report ---
XR chest 1V portable CLINICAL HISTORY: Chest Pain TECHNIQUE: Single frontal radiograph of the chest was obtained. Comparison: None available at the time of this dictation. FINDINGS: No lines and tubes are seen. The cardiomediastinal silhouette is normal. The lungs are clear. No evid ence of pleural effusion or pneumothorax. IMPRESSION: No acute chest disease. ACT 112: Negative or not required by law. Electronically signed by: Austin Esposito M.D. 08/29/2021 1:17 PM
[2021-08-29] MEDS ORDERED: CIPROFLOXACIN / D5W 400 MG/200 ML BAG IV STA (13:20)
[2021-08-29] MEDS ORDERED: metroNIDAZOLE 500 MG/100 ML BAG IV STA (13:20)
--- NOTE | 2021-08-29 14:17 | History & Physical Report ---
Date of Service August 29, 2021 Assessment & Plan (1) Acute cholecystitis: Plan: This is a 75y F with a PMH of hypothyroid, HTN, pericarditis who presents to the [facility] ED on 08/29/21 with complaints of upper abdominal pain starting yesterday. In the ER the patient underwent a CTA chest/abd/pelvis that revealed gallstones and gallbladder wall thickening compatible with acute cholecystitis. On exam patient's abdomen is soft with tenderness to palpation in the epigastric and RUQ. Labs reveal WBC 11 with normal LFTs and lipase. She is afebrile and hypertensive in the ED. Based on patient's history and findings we will proceed with laparoscopic cholecystectomy +/- intraop cholangiogram this admission. Due to her eating this AM we will book patient for the OR tomorrow. We will admit her under our service. Liquid diet okay and will make NPO at midnight with IVF and IV abx. Covid negative. Patient is agreeable to the plan. Plan of care discussed with Dr. Recio who will obtain surgical consent prior to procedure. History of Present Illness Primary Care Provider: Kurt Mendes Jr, DO This is a 75y F with a PMH of hypothyroid, HTN, pericarditis 2 years ago who presents to the [facility] ED on 08/29/21 with complaints of upper abdominal pain. Patient states the pain started yesterday afternoon and has been constant. She initially thought it felt muscular in nature as she goes to the gym during the week. At its worse she rated the pain a 9/10, located in the upper abdomen that radiates to her back. She has lost her appetite starting yesterday as well. Denies any nausea/vomiting, fevers/chills, diarrhea or constipation, or shortness of breath. She could not get comfortable during the night due to discomfort. She says this feels similar to a bout of pericarditis she was admitted for 2 years ago. She presented to the ER for further evaluation fearful that the pain was cardiac in nature. In the ER the patient underwent a CTA chest/abd/pelvis that revealed gallstones and gallbladder wall thickening compatible with acute cholecystitis. Patient last ate some bites of pancake and sausage this AM without exacerbation of her symptoms. She denies any issues with eating fatty/spicy/greasy foods in the past. No prior abdominal surgical history. She tells me she is suppose to get in 3 weeks. Allergies Allergy/AdvReac Type Severity Reaction Status Date / Time melatonin AdvReac Severe DYSTONIA Verified 07/05/19 16:36 Home Medications Medication Instructions Recorded Confirmed Type amitriptyline 25 mg tablet 50 mg PO HS 07/05/19 07/05/19 History atorvastatin 20 mg tablet (Lipitor) 20 mg PO QAM 07/05/19 07/05/19 History [id number]-lxeynoy-[id number] 50 1 - 2 cap PO Q4H PRN 07/05/19 07/05/19 History mg-325 mg-40 mg capsule (Fiorinal) cholecalciferol (vitamin D3) 25 1,000 unit PO QAM 07/05/19 07/05/19 History mcg (1,000 unit) capsule (Vitamin D3) levothyroxine 125 mcg tablet 125 mcg PO DAILYBB 07/05/19 07/05/19 History (Synthroid) metoprolol succinate 50 mg 50 mg PO HS 07/05/19 07/05/19 History tablet,extended release 24 hr (Toprol XL) colchicine 0.6 mg tablet 0.6 mg PO BID #60 tab 07/06/19 Rx Past Med/Surg History Medical History Endometriosis Hyperlipemia Hypertension Pericarditis Surgical History H/O dilation and curettage S/P tonsillectomy S/P tooth extraction Family History Uncle Colorectal cancer maternal Father Myocardial infarction, Onset Age: 52 Social History Smoking Status: Never smoker Second Hand Exposure: No; Hx Alcohol Use: Yes Alcohol type: hard liquor Hx Substance Use: No Preferred Language: Belarusian Communication Ability: Effective Telemarketing Supervisor Required: No Beliefs That Will Affect Care: None Current Living Situation: Alone Other Information That Helps Us Care for You: No Feels Safe at Home: Yes Safety Concerns: Feels Safe At This Time Assistive Devices: None Review of Systems Constitutional: + anorexia; no fever and no chills Respiratory: no dyspnea Gastrointestinal: + abdominal pain (upper abdominal pain) and + bloating; no nausea, no vomiting and no change in bowel habits Physical Exam Physical Exam: awake/alert, no acute distress Respiratory: normal respiratory effort Gastrointestinal (Abdomen): Inspection/Auscultation: abdomen normal to inspection; abdomen not distended and no abdominal surgical scar Percussion/Palpation: + abdomen tender (ttp in epigastric and RUQ ) and abdomen soft Results & Data Results & Data ([facility]) Vital Signs (Past 12 Hours) Vital Signs Temp Pulse Resp BP Pulse Ox 08/29/21 13:50 77 22 96 08/29/21 13:40 79 18 97 08/29/21 13:30 89 15 176/93 H 96 08/29/21 13:20 76 15 95 08/29/21 13:10 77 17 97 08/29/21 13:04 84 17 173/76 H 08/29/21 12:30 98 H 19 97 08/29/21 12:25 94 H 15 160/97 H 93 08/29/21 12:20 97 H 15 98 08/29/21 12:10 87 19 100 08/29/21 12:05 99 08/29/21 12:00 86 20 99 08/29/21 11:50 94 H 24 100 08/29/21 11:35 37.0 C 104 H 18 200/105 H [address] angio abdomen pelvis w con CLINICAL HISTORY: ro dissection TECHNIQUE: Multidetector row helical CT of the abdomen and pelvis was performed, following intravenous administration of iodinated contrast. No oral contrast was administered. Automated dose lowering techniques and/or adjustment according to patient size were utilized for this exam. Coronal and sagittal reformations were obtained. MIP and 3D volume rendered reconstructions were obtained. Comparison: None available at the time of this dictation. FINDINGS: Lower chest: For findings above the diaphragm, please see CT chest performed same day. Liver: Unremarkable. No focal lesions are seen. Gallbladder and biliary tree: Cholelithiasis is seen. The gallbladder wall is thickened to 4 mm and small pericholecystic fluid is seen. No intra- or extrahepatic biliary ductal dilation. Pancreas: Unremarkable, no focal lesions. Spleen: Splenule is incidentally noted. Adrenals: Unremarkable. Kidneys and ureters: Unremarkable. Bladder: Unremarkable. Reproductive organs: Unremarkable. Bowel: Diverticulosis is seen without evidence of diverticulitis. The appendix is not well seen. Lymph nodes Retroperitoneal: Unremarkable. Mesenteric: Unremarkable. Pelvic: Unremarkable. Peritoneum: Normal. Abdominal wall: Unremarkable. Bones: Degenerative changes in the visualized spine. CT angiogram: The abdominal aortic contours appear intact without evidence of aneurysmal dilatation and/or dissection. No significant atherosclerosis is seen. The origins of the celiac axis, superior mesenteric, inferior mesenteric and bilateral renal arteries are patent. IMPRESSION: 1. Gallstones and gallbladder wall thickening compatible with acute cholecystitis. 2. Atherosclerotic disease is seen without evidence of critical stenosis. ACT 112: Negative or not required by law. Electronically signed by: Austin Esposito M.D. 08/29/2021 1:[address] angio chest dissec wo/w con CLINICAL HISTORY: ro dissection TECHNIQUE: Multidetector row helical CT of the chest was performed before and after injection of IV contrast. Coronal and sagittal reformations were obtained. Automated dose lowering techniques and/or adjustment according to patient size were utilized for this exam. CT DOSE: 653.01 mGy.cm Comparison: None available at the time of this dictation. FINDINGS: Lungs and pleura: Normal. Heart and pericardium: Heart size is normal. No pericardial effusion. Vessels: Moderate atherosclerotic changes in the aorta and coronary arteries. Mediastinum and zulieka: Unremarkable. Chest wall and lower neck: Unremarkable. Abdomen: For findings below the diaphragm, please refer to CT of the abdomen dated the same. Bones: Degenerative changes in the thoracic spine. IMPRESSION: No acute abnormality and in particular no evidence of acute aortic injury. ACT 112: Negative or not required by law. Electronically signed by: Austin Esposito M.D. 08/29/2021 1:10 PM Code Status & VTE Plan VTE Prophylaxis Plan VTE Prophylaxis will be ordered: Yes Supervising Physician Co-Signing Physician Notes I personally saw and evaluated the patient with Abdirizak Wren PA-C and agree with the assessment and plan. 75-year-old female with acute cholecystitis CT images and results personally viewed by me, consistent with acute cholecystitis Will admit to surgery, give clears until midnight then n.p.o. IV fluids and IV antibiotics We will plan on laparoscopic cholecystectomy, possible open, possible IOC tomorrow PG Care Time/CCT Total # of Minutes Spent Total Time Spent with Patient: Total time spent is greater than 50% in coordination of care (as documented) at patient's floor/unit and/or counseling patient: Coding Level of Care Code INT OBSERVATION CARE 30M LVL 1 Diagnoses Acute cholecystitis K81.0
--- NOTE | 2021-08-29 14:28 | Electrocardiogram Report ---
Test Reason : Blood Pressure : / mmHG Vent. Rate : 092 BPM Atrial Rate : 092 BPM P-R Int : 152 ms QRS Dur : 070 ms QT Int : 386 ms P-R-T Axes : 072 046 018 degrees QTc Int : 477 ms Normal sinus rhythm Abnormal ECG Confirmed by Gonzalez Hurt ([id number]) on 08/29/2021 2:28:33 PM Referred By: Confirmed By:Juan Pablo Hurt
[2021-08-29] MEDS ORDERED: MoRPHine SULFATE 2 MG/ML CARP IV STA (14:39)
[2021-08-29] MEDS ORDERED: ONDANSETRON INJ 2 MG/ML 2 ML VIAL IV PRN (15:50)
[2021-08-29] MEDS ORDERED: MoRPHine SULFATE 2 MG/ML CARP IV PRN (15:50)
[2021-08-29] MEDS ORDERED: ACETAMINOPHEN 325 MG TAB PO PRN (15:50)
[2021-08-29] MEDS ORDERED: MoRPHine SULFATE 4 MG/ML 1 ML CARP\\VIAL IV PRN (15:50)
[2021-08-29] MEDS ORDERED: ACETAMINOPHEN 500 MG TAB ONE (16:05)
[2021-08-29] MEDS ORDERED: HYDROmorphone INJ 0.5 MG/0.5 ML SYR IV PRN (16:15)
[2021-08-29] MEDS ORDERED: hydrALAZINE HCL 20 MG/ML VIAL IV PRN (16:20)
[2021-08-29] MEDS: SODIUM CHLORIDE 0.9% 1000ML 1,000 ML IV SCH (16:27)
[2021-08-29] MEDS: HYDROmorphone INJ 0.5 MG/0.5 ML SYR IV PRN ×2 (16:28→22:20)
[2021-08-29] MEDS: METOPROLOL SUCC 50MG EXT REL TAB PO SCH (20:16)
[2021-08-29] MEDS: AMITRIPTYLINE HCL 50 MG TAB PO SCH (20:16)
[2021-08-29] MEDS: metroNIDAZOLE 500 MG/100 ML BAG IV SCH (22:22)
[2021-08-30] MEDS: ACETAMINOPHEN 1000 MG/100 ML IV IV PRN ×3 (00:08→15:49)
[2021-08-30] MEDS: SODIUM CHLORIDE 0.9% 1000ML 1,000 ML IV SCH ×3 (02:07→14:53)
[2021-08-30] MEDS: CIPROFLOXACIN / D5W 400 MG/200 ML BAG IV SCH ×2 (02:07→14:53)
[2021-08-30 05:33] LABS: Basophils # (auto) 0.04 K/uL (0-0.2); Basophils % (auto) 0.3 %; Hematocrit (blood only) 37.8 % (34.1-44.9); Hemoglobin 13.3 g/dl (12.0-16.0); Immature Granulocytes # (auto) 0.06 K/uL (0.00-0.02); Immature Granulocytes % (auto) 0.4 %; Lymphocytes # (auto) 1.61 K/uL (1.2-3.4); Lymphocytes % (auto) 11.7 %; Mean Corpuscular Hemoglobin 29.3 pg (25.0-34.0); Mean Corpuscular Hgb Conc 35.2 g/dL (32.0-36.0); Mean Corpuscular Volume 83.3 fL (80.0-100.0); Mean Platelet Volume 9.2 fL (9.4-12.3); Monocytes # (auto) 1.61 K/uL (0.24-0.82); Monocytes % (auto) 11.7 %; Neutrophils # (auto) 10.41 K/uL (1.4-6.5); Neutrophils % (auto) 75.9 %; Platelet Count 173 K/uL (130-400); RDW Coefficient of Variation 12.4 % (11.5-14.5); RDW Standard Deviation 37.5 fL (36.4-46.3); Red Blood Count 4.54 M/uL (3.93-5.22); White Blood Count 13.73 K/ul (4.8-10.8)
[2021-08-30] MEDS: LEVOTHYROXINE SODIUM 125 MCG TABLET PO SCH (05:46)
[2021-08-30] MEDS: metroNIDAZOLE 500 MG/100 ML BAG IV SCH ×3 (05:46→21:27)
[2021-08-30 06:10] LABS: BUN Creatinine Ratio 13.1 (10-20); Bilirubin Direct 0.2 mg/dl (0-0.2); Bilirubin,Total 0.8 mg/dl (0.2-1.0); Calcium 8.3 mg/dl (8.5-10.1); Creatinine Clr Calc Pharmacy 73.9 ml/min; Est GFR (African American) 104.2 ml/min; Est GFR (Non-African American) 89.9 ml/min; Potassium 3.8 mmol/L (3.5-5.1); Total Protein 6.5 gm/dl (6.0-8.3)
[2021-08-30] MEDS: HYDROmorphone INJ 0.5 MG/0.5 ML SYR IV PRN ×3 (07:42→22:45)
--- NOTE | 2021-08-30 08:40 | Surgery Progress Note ---
Date of Service August 30, 2021 Assessment & Plan (1) Acute cholecystitis: Plan: Continue IV antibiotics Keep n.p.o. We will plan on laparoscopic cholecystectomy, possible open, possible intraoperative cholangiogram today Consent was obtained, risks discussed including bleeding, infection, bile leak, ductal injury Admission and Anticipated Discharge Date Admission Date: August 29, 2021 Subjective Patient seen and examined. No acute events overnight. Afebrile. Still with right upper quadrant abdominal pain. Review of Systems Constitutional: no fever and no chills Physical Exam Constitutional: WD/WN, vitals as above Eyes: PERRL, conjunctivae normal, anicteric sclerae Gastrointestinal (Abdomen): Inspection/Auscultation: abdomen normal to inspection; abdomen not distended Percussion/Palpation: + abdomen tender (Right upper quadrant), + guarding and abdomen soft; abdomen not rigid and no hernia Positive Lam sign Results & Data ([facility]) Vital Signs (Past 12 Hours) Vital Signs Temp Pulse Resp BP Pulse Ox 08/30/21 06:57 37.4 C 78 20 156/78 H 94 08/29/21 23:15 36.9 C 73 17 166/77 H 96 PG Care Time/CCT Total # of Minutes Spent Total Time Spent with Patient: Total time spent is greater than 50% in coordination of care (as documented) at patient's floor/unit and/or counseling patient: Coding Level of Care Code 52931 Subseq Hosp Care Lvl 1 Diagnoses Acute cholecystitis K81.0
[2021-08-30] MEDS ORDERED: MIDAZOLAM HCL 1 MG/ML 2ML VIAL ONE (11:34)
[2021-08-30] MEDS ORDERED: fentaNYL citrate 100 MCG/2 ML VIAL ONE ×2 (11:34→13:39)
[2021-08-30] MEDS ORDERED: BUPIVACAINE 0.5 % 5 MG/1 ML MPF 30ML VIAL ONE (11:56)
[2021-08-30] MEDS ORDERED: ONDANSETRON INJ 2 MG/ML 2 ML VIAL ONE (11:57)
[2021-08-30] MEDS ORDERED: PROPOFOL IV EMULSION 10 MG/ML 20 ML VIAL IV ONE (11:57)
[2021-08-30] MEDS ORDERED: LIDOCAINE 2% 2 ML VIAL/AMP(20MG/ML) INFIL ONE (11:57)
--- NOTE | 2021-08-30 12:17 | Electrocardiogram Report ---
Test Reason : Blood Pressure : / mmHG Vent. Rate : 086 BPM Atrial Rate : 086 BPM P-R Int : 150 ms QRS Dur : 074 ms QT Int : 400 ms P-R-T Axes : 079 044 028 degrees QTc Int : 478 ms Normal sinus rhythm When compared with ECG of 29-AUG-2021 11:45, Questionable change in initial forces of Anterior leads Nonspecific T wave abnormality has replaced inverted T waves in Inferior leads Confirmed by Gonzalez Hurt ([id number]) on 08/30/2021 12:16:48 PM Referred By: REFERRED SELF Confirmed By:Juan Pablo Hurt
--- NOTE | 2021-08-30 12:17 | Electrocardiogram Report ---
Test Reason : Blood Pressure : / mmHG Vent. Rate : 083 BPM Atrial Rate : 083 BPM P-R Int : 144 ms QRS Dur : 068 ms QT Int : 392 ms P-R-T Axes : 083 046 018 degrees QTc Int : 460 ms Normal sinus rhythm T wave abnormality, consider inferior ischemia Abnormal ECG When compared with ECG of 29-AUG-2021 12:04, (unconfirmed) Questionable change in initial forces of Anteroseptal leads Confirmed by Gonzalez Hurt ([id number]) on 08/30/2021 12:16:57 PM Referred By: REFERRED SELF Confirmed By:Juan Pablo Hurt
[2021-08-30] MEDS ORDERED: ePHEDrine sulfate 50 MG/ML AMP IV PRN (12:18)
[2021-08-30] MEDS ORDERED: ATROPINE SULFATE 0.1 MG/ML 10ML SYR IV PRN (12:18)
[2021-08-30] MEDS ORDERED: ONDANSETRON INJ 2 MG/ML 2 ML VIAL IV PRN (12:18)
[2021-08-30] MEDS ORDERED: fentaNYL citrate 100 MCG/2 ML VIAL IV PRN (12:18)
--- NOTE | 2021-08-30 12:18 | Anesthesiology Consultation ---
Date of Service August 30, 2021 Assessment & Plan Chart Review Chart Review: Acceptable Risk for Surgery and Patient NOT seen in Pre Admission Testing Consults Requested none ASA ASA2 Proposed Anesthesia Anesthesia Type: General Risk / Benefits Reviewed With: PT / POA / Parent / Guardian, Accepts Plan and Informed Consent Obtained History Surgery Operation Date: 08/30/21 11:30 Proposed Procedures p Laparoscopic Cholecystectomy, Possible Cholangiogram - Abdoul Recio, DO Height/Weight Height: 5 ft 5 in Weight: 64.4 kg Allergies Allergy/AdvReac Type Severity Reaction Status Date / Time melatonin AdvReac Severe DYSTONIA Verified 07/05/19 16:36 Medications Home Medications Medication Instructions Recorded Confirmed Last Taken amitriptyline 25 mg tablet 50 mg PO HS 07/05/19 07/05/19 07/04/19 atorvastatin 20 mg tablet (Lipitor) 20 mg PO QAM 07/05/19 07/05/19 07/05/19 [id number]-[id number]-[id number] 50 1 - 2 cap PO Q4H PRN 07/05/19 07/05/19 07/04/19 mg-325 mg-40 mg capsule (Fiorinal) 2 caps cholecalciferol (vitamin D3) 25 1,000 unit PO QAM 07/05/19 07/05/19 07/05/19 mcg (1,000 unit) capsule (Vitamin D3) levothyroxine 125 mcg tablet 125 mcg PO DAILYBB 07/05/19 07/05/19 07/05/19 (Synthroid) metoprolol succinate 50 mg 50 mg PO HS 07/05/19 07/05/19 07/04/19 tablet,extended release 24 hr (Toprol XL) colchicine 0.6 mg tablet 0.6 mg PO BID #60 tab 07/06/19 Unknown Active Medications Generic Name Dose Route Start Last Admin Trade Name Freq PRN Reason Stop Dose Admin Acetaminophen 1,000 mg 08/30/21 00:01 08/30/21 07:59 Acetaminophen 1000 Mg/100 Ml Iv IV 09/02/21 00:00 1,000 mg Q8H PRN Administration mild pain Amitriptyline HCl 50 mg 08/29/21 21:00 08/29/21 20:16 Amitriptyline Hcl 50 Mg Tab PO 09/28/21 20:59 50 mg HS JANETH Administration Hydromorphone HCl 0.5 mg 08/29/21 16:15 08/30/21 07:42 Hydromorphone Inj 0.5 Mg/0.5 Ml Syr IV 09/12/21 16:14 0.5 mg Q3H PRN Administration Severe Pain Sodium Chloride 1,000 mls @ 100 mls/hr 08/29/21 15:50 08/30/21 10:41 Nss 1000ml IV 09/28/21 15:49 Infused .Q10H JANETH Infusion Metronidazole 500 mg in 100 mls @ 100 mls/hr 08/29/21 22:00 08/30/21 06:46 Flagyl IV 09/08/21 21:59 Infused Q8H JANETH Infusion Ciprofloxacin 400 mg in 200 mls @ 100 mls/hr 08/30/21 02:00 08/30/21 04:08 Cipro / D5w IV 09/09/21 01:59 Infused Q12H JANETH Infusion Protocol Levothyroxine Sodium 125 mcg 08/30/21 06:30 08/30/21 05:46 Levothyroxine Sodium 125 Mcg Tablet PO 09/29/21 06:29 125 mcg DAILYBB AJNETH Administration Metoprolol Succinate 50 mg 08/29/21 21:00 08/29/21 20:16 Metoprolol Succ 50mg Ext Rel Tab PO 09/28/21 20:59 50 mg HS JANETH Administration NPO Date Last Intake of Fluids: 08/29/21 Time Last Intake of Fluids: 23:00 Date Last Intake of Solids: 08/29/21 Time Last Intake of Solids: 09:00 Past Medical History Medical History Endometriosis Hyperlipemia Hypertension Pericarditis Exercise / Class Metabolic Activity II 4-5 Yardwork/Stairs/Walk up hill Past Family History Family History Uncle Colorectal cancer maternal Father Myocardial infarction, Onset Age: 52 Past Surgical History Surgical History H/O dilation and curettage S/P tonsillectomy S/P tooth extraction Past Anesthesia History No Hx of Anesthesia Complications and No Family Hx of Anesthesia Complications History of PONV No Hx of PONV and No Hx of Motion Sickness Social History Smoking Status: Never smoker Hx Alcohol Use: Yes Alcohol type: hard liquor alcohol intake frequency: a few times a month Hx Substance Use: No Physical Exam Vital Signs Last Vital Signs Temp 37.1 C 08/30/21 10:59 Pulse 85 08/30/21 10:59 Resp 18 08/30/21 10:59 BP 120/73 08/30/21 10:59 Pulse Ox 95 08/30/21 10:59 ENMT Mouth: no dentition abnormality Thyromental Distance: > or= 3.5 Finger Breadths Mallampati Class: II Neck normal visual inspection Respiratory normal respiratory effort Auscultation: lungs clear to auscultation bilaterally Cardiovascular Rate/Rhythm: regular rate and regular rhythm Psychiatric Orientation: alert Testing Laboratory Results 08/30/21 05:11 08/30/21 05:11 PT 10.9 Seconds (9.0-12.0) 08/29/21 12:20 INR 1.0 (0.9-1.1) 08/29/21 12:20 APTT 23.5 Seconds (21.0-31.0) 08/29/21 12:20
[2021-08-30] MEDS ORDERED: ROCURONIUM BROMIDE 10 MG/ML 5 ML VIAL IV ONE (12:52)
[2021-08-30] MEDS: BUPIVACAINE/EPINEPHRINE 0.25% 1:200,000 30 ML VIAL ONE ×2 (13:19→13:42)
[2021-08-30] MEDS ORDERED: NEOSTIGMINE METHYLSULFATE 1 MG/ML 10ML VIAL ONE (13:35)
[2021-08-30] MEDS ORDERED: GLYCOPYRROLATE 0.2 MG/ML VIAL ONE (13:35)
[2021-08-30] MEDS ORDERED: PHENYLEPHRINE 100MCG/ML 5ML SYR ONE (13:38)
--- NOTE | 2021-08-30 13:38 | Post Operative Brief Note ---
PG Immediate Post Op with CF Date of Surgery August 30, 2021 Pre & Post Diagnosis Operation Date: 08/30/21 11:30 Pre-Op Diagnosis: Acute cholecystitis Post-Op Diagnosis: Acute cholecystitis I identified the patient and participated in the time-out.: Yes Procedure Operation Date: 08/30/21 11:30 Actual Procedures p Laparoscopic Cholecystectomy(Not Applicable) - Abdoul Recio DO Surgeon Abdoul Recio DO Branch Office Manager Mohit Hatch PA-C Estimated Blood Loss 25 Findings Consistent with Post-Op Diagnosis Specimens Specimen Description: A. Gallbladder and contents Anesthesia Type General Complications none Disposition Disposition: Recovery Room
--- NOTE | 2021-08-30 13:41 | Operative Report ---
PG Post Operative Report Pre & Post Diagnosis Operation Date: 08/30/21 11:30 Pre-Op Diagnosis: Acute cholecystitis Post-Op Diagnosis: Acute cholecystitis I identified the patient and participated in the time-out.: Yes Procedure Operation Date: 08/30/21 11:30 Actual Procedures p Laparoscopic Cholecystectomy(Not Applicable) - Abdoul Recio DO Surgeon Abdoul Recio DO Yield Clerk Mohit Hatch PA-C Estimated Blood Loss 25 Findings See Below Acutely inflamed edematous gallbladder with thickened wall consistent with acute cholecystitis Fluids see anesthesia record Specimens Gallbladder to pathology Drains None Anesthesia Type General Complications none Disposition Disposition: Recovery Room Indications 75-year-old female with acute cholecystitis Description of Procedure The patient was brought to the operating room and placed in the supine position with both arms extended. At this time she underwent general endotracheal anesthesia without any problems. She was given appropriate pre-operative antibiotics. Her abdomen prepped and draped in the usual sterile fashion. A timeout was called, the procedure was verified as Laparoscopic cholecystectomy, possible open, possible intra-operative cholangiogram. Surgical, nursing and anesthesia teams agreed and the procedure was begun. After injection of 0.25% Marcaine with epinephrine, a supraumbilical vertical incision was made and carried down to the fascia using S-retractors. The abdominal wall was then elevated with towel clamps and abdomen entered using the Veress needle confirming position using the saline drop test. Pneumoperitoneum was established. 5mm trocar was placed. Laparoscope was introduced. No injury from entry into the abdomen was visualized after inspection of the abdomen. Three further ports were placed under direct visualization. One 11mm in the subxiphoid region and two 5mm in the RUQ. At this time the abdomen was inspected and the gallbladder identified. The gallbladder was decompressed using a needle. At this time omental adhesions were lysed using sharp and blunt dissection. The gallbladder fundus was grasped and retracted cephalad. The gallbladder itself was acutely inflamed with a thickened wall consistent with acute cholecystitis. Upon decompression there was gallbladder hydrops and pus noted within the gallbladder. The gallbladder infundibulum was then grasped and retracted laterally. The cystic duct and cystic artery were then identified and skeletonized. The critical view of safety was obtained. They were both then clipped twice proximally and once distally and then divided using scissors. The gallbladder was then taken off of the liver bed using electrocautery and placed in an endocatch bag and removed from the subxiphoid port. The liver bed was then inspected and no bile leak or bleeding was evident. The subxiphoid port was then closed using 0-Vicryl using the suture passer. The trocars were then removed under direct visualization and no bleeding was present. Abdomen was desufflated. The skin was then closed using 4-0 Monocryl in a subcuticular fashion. Surgical glue was applied. Needle and sponge counts were correct x 2. At this time the patient was awoken from anesthesia and extubated having remained stable throughout the entire case. The patient was then transported to PACU in stable condition. The physician assistant scientist was present scrubbed for the entire case. He was essential in positioning, prepping and draping the patient, retraction exposure, driving the laparoscope, closure of the incisions and placement the dressings. I attest to the content of the Intraoperative Record and any orders documented therein. Any exceptions are noted below.
[2021-08-30] MEDS ORDERED: oxyCODONE HCL IR 5 MG TAB (IMMEDIATE RELEASE) PO PRN (14:37)
[2021-08-30] MEDS: METOPROLOL SUCC 50MG EXT REL TAB PO SCH (20:25)
[2021-08-30] MEDS: AMITRIPTYLINE HCL 50 MG TAB PO SCH (20:25)
[2021-08-31] MEDS: SODIUM CHLORIDE 0.9% 1000ML 1,000 ML IV SCH ×5 (00:51→20:27)
[2021-08-31] MEDS: CIPROFLOXACIN / D5W 400 MG/200 ML BAG IV SCH (01:14)
[2021-08-31] MEDS: metroNIDAZOLE 500 MG/100 ML BAG IV SCH (05:59)
[2021-08-31] MEDS: LEVOTHYROXINE SODIUM 125 MCG TABLET PO SCH (05:59)
[2021-08-31] MEDS: HYDROmorphone INJ 0.5 MG/0.5 ML SYR IV PRN (07:21)
[2021-08-31] MEDS ORDERED: HYDROmorphone INJ 0.5 MG/0.5 ML SYR IV PRN (07:55)
[2021-08-31] MEDS ORDERED: KETOROLAC TROMETHAMINE 15 MG/ML VIAL IV ONE (07:55)
[2021-08-31] MEDS ORDERED: oxyCODONE/ACETAMINOPHEN 5mg/325mg TAB PO PRN ×2 (07:55)
--- NOTE | 2021-08-31 10:45 | Surgery Progress Note ---
Date of Service August 31, 2021 Assessment & Plan (1) Acute cholecystitis: Plan: POD lap geri will change meds to Percocet, toradol x1 advance diet recheck later today Admission and Anticipated Discharge Date Admission Date: August 29, 2021 Supervising Physician Co-Signing Physician Notes I personally saw and evaluated the patient Mohit Hatch PA-C and agree with the assessment and plan. 75-year-old female postop day 1 laparoscopic cholecystectomy for acute cholecystitis Keep on clears for today she is not eating much Order CBC she has had some low blood pressures We will switch from Cipro Flagyl to Zosyn Pain control as needed She is encouraged to ambulate as much as possible Subjective some right sided pain, no nausea, not drinking much Physical Exam Gastrointestinal (Abdomen): Inspection/Auscultation: + abdominal surgical incision (clean, dry); abdomen not distended and no abdominal wall ecchymosis Percussion/Palpation: abdomen soft Results & Data ([facility]) Vital Signs (Past 12 Hours) Vital Signs Temp Pulse Resp BP Pulse Ox O2 Del Method 08/31/21 07:07 37.2 C 88 16 113/64 94 Room Air 08/31/21 01:18 37.5 C 90 17 145/77 H 95 Room Air 08/30/21 23:28 37.6 C H 103 H 17 129/74 92 Room Air PG Care Time/CCT Total # of Minutes Spent Total Time Spent with Patient: Total time spent is greater than 50% in coordination of care (as documented) at patient's floor/unit and/or counseling patient: Coding Level of Care Code None Diagnoses Acute cholecystitis K81.0
[2021-08-31] MEDS: PIPERACILLIN/TAZOBACTAM 3.375 GM in DEXTROSE 5% 100 ML IV SCH ×2 (13:54→22:42)
[2021-08-31 14:18] LABS: Basophils # (auto) 0.04 K/uL (0-0.2); Basophils % (auto) 0.3 %; Hematocrit (blood only) 32.8 % (34.1-44.9); Hemoglobin 11.5 g/dl (12.0-16.0); Immature Granulocytes # (auto) 0.09 K/uL (0.00-0.02); Immature Granulocytes % (auto) 0.6 %; Lymphocytes # (auto) 1.62 K/uL (1.2-3.4); Lymphocytes % (auto) 11.1 %; Mean Corpuscular Hemoglobin 29.3 pg (25.0-34.0); Mean Corpuscular Hgb Conc 35.1 g/dL (32.0-36.0); Mean Corpuscular Volume 83.5 fL (80.0-100.0); Mean Platelet Volume 9.2 fL (9.4-12.3); Monocytes # (auto) 1.15 K/uL (0.24-0.82); Monocytes % (auto) 7.9 %; Neutrophils # (auto) 11.66 K/uL (1.4-6.5); Neutrophils % (auto) 80.1 %; Platelet Count 175 K/uL (130-400); RDW Coefficient of Variation 12.9 % (11.5-14.5); RDW Standard Deviation 39.5 fL (36.4-46.3); Red Blood Count 3.93 M/uL (3.93-5.22); White Blood Count 14.56 K/ul (4.8-10.8)
[2021-08-31] MEDS: AMITRIPTYLINE HCL 50 MG TAB PO SCH (22:39)
[2021-08-31] MEDS: METOPROLOL SUCC 50MG EXT REL TAB PO SCH (22:39)
[2021-09-01] MEDS: SODIUM CHLORIDE 0.9% 1000ML 1,000 ML IV SCH (05:59)
[2021-09-01] MEDS: PIPERACILLIN/TAZOBACTAM 3.375 GM in DEXTROSE 5% 100 ML IV SCH ×2 (05:59→14:27)
[2021-09-01] MEDS: LEVOTHYROXINE SODIUM 125 MCG TABLET PO SCH (06:22)
[2021-09-01 06:34] LABS: Basophils # (auto) 0.02 K/uL (0-0.2); Basophils % (auto) 0.1 %; Hematocrit (blood only) 33.7 % (34.1-44.9); Hemoglobin 11.7 g/dl (12.0-16.0); Immature Granulocytes % (auto) 0.7 %; Lymphocytes # (auto) 1.29 K/uL (1.2-3.4); Mean Corpuscular Hemoglobin 29.2 pg (25.0-34.0); Mean Corpuscular Hgb Conc 34.7 g/dL (32.0-36.0); Mean Platelet Volume 9.5 fL (9.4-12.3); Monocytes # (auto) 0.68 K/uL (0.24-0.82); Monocytes % (auto) 4.8 %; Neutrophils # (auto) 12.17 K/uL (1.4-6.5); Neutrophils % (auto) 85.4 %; Platelet Count 182 K/uL (130-400); RDW Coefficient of Variation 12.8 % (11.5-14.5); RDW Standard Deviation 38.9 fL (36.4-46.3); Red Blood Count 4.01 M/uL (3.93-5.22); White Blood Count 14.26 K/ul (4.8-10.8)
[2021-09-01 06:58] LABS: BUN Creatinine Ratio 16.9 (10-20); Calcium 7.5 mg/dl (8.5-10.1); Creatinine Clr Calc Pharmacy 76.4 ml/min; Est GFR (African American) 105.4 ml/min; Est GFR (Non-African American) 90.9 ml/min; Potassium 3.1 mmol/L (3.5-5.1)
[2021-09-01] MEDS ORDERED: IBUPROFEN 200 MG TAB PO PRN (08:01)
[2021-09-01] MEDS ORDERED: ACETAMINOPHEN 325 MG TAB PO PRN (08:01)
[2021-09-01] MEDS ORDERED: oxyCODONE HCL IR 5 MG TAB (IMMEDIATE RELEASE) PO PRN ×2 (08:01)
[2021-09-01] MEDS ORDERED: POTASSIUM CHLORIDE CRTAB 20 MEQ TABCR PO STA (08:03)
[2021-09-01] MEDS ORDERED: NSS + 20MEQ KCL 20 MEQ/1,000 ML BAG IV SCH (08:15)
--- NOTE | 2021-09-01 08:31 | Surgery Progress Note ---
Date of Service September 01, 2021 Assessment & Plan (1) Acute cholecystitis: Plan: POD#2 lap geri WBC 14 (14), Hbg 11.7 (11.5), K: 3.1. low grade temps overnight Change IVF to add K in addition to some oral replacement Pt slow with progress, needs encouragement to work on IS and ambulate the halls Will advance diet to regular and see how she fairs She is requesting to go home, however does not appear ready this AM. Will check on this afternoon Once ready she will be sent home on a course of po abx to complete Admission and Anticipated Discharge Date Admission Date: August 31, 2021 Supervising Physician Co-Signing Physician Notes I personally saw and evaluated the patient Mohit Hatch PA-C and agree with the assessment and plan. 75-year-old female postop day 2 laparoscopic cholecystectomy for acute cholecystitis Advance diet Still with a mild leukocytosis of 14, her hemoglobin is stable, awaiting LFTs Continue Zosyn Pain control as needed She is encouraged to ambulate as much as possible She is not using her spirometer very much encouraged her to do this Subjective Patient still with pain but says it's a little better than yesterday. Denies nausea/vomiting but is not drinking much she says due to a sore throat. Feeling gas rumblings but no bowel function yet. Has not been ambulating the halls. Physical Exam Physical Exam: awake/alert Respiratory: normal respiratory effort Gastrointestinal (Abdomen): Inspection/Auscultation: + abdomen distended (mild) and + abdominal surgical incision (c/d/i with dermabond) Percussion/Palpation: + abdomen tender (cass incisional discomfort to palpation) and abdomen soft Results & [facility] ([facility]) Vital Signs (Past 12 Hours) Vital Signs Temp Pulse Resp BP Pulse Ox O2 Del Method 09/01/21 07:39 37.6 C H 97 H 16 134/80 93 Room Air 09/01/21 06:49 37.5 C 08/31/21 22:37 37.7 C H 107 H 16 136/77 97 Room Air PG Care Time/CCT Total # of Minutes Spent Total Time Spent with Patient: Total time spent is greater than 50% in coordination of care (as documented) at patient's floor/unit and/or counseling patient: Coding Level of Care Code None Diagnoses Acute cholecystitis K81.0
[2021-09-01 10:32] LABS: Albumin Level 3.3 gm/dl (3.4-5.0); Bilirubin Direct 0.1 mg/dl (0-0.2); Bilirubin,Total 0.7 mg/dl (0.2-1.0); Total Protein 6.2 gm/dl (6.0-8.3)
== END 2021-09-01 17:43 | disposition home or self-care (01) | DRG 418 ==
LOC: 3N 11:31 → ED 11:31 → 3N 14:58